=== PATIENT | female | born 1950 | race Caucasian/White ===

== ENCOUNTER 2020-01-25 09:52 | Outpatient (CLI) | payer MEDICARE, SELFPAY ==
[2020-01-25 10:13] LABS: Basophils Percent Auto 0.4 % (0.2-1.2); Eosinophils Absolute Auto 0.1 K/mm3 (0-0.3); Eosinophils Percent Auto 0.9 % (0-4.4); Hemoglobin 12.7 g/dL (12.0-15.0); Immature Granulocyte Absolute 0.03 K/mm3 (0.00-0.031); Immature Granulocyte Percent A 0.4 % (0-0.5); Lymphocytes Absolute Auto 1.38 K/mm3 (0.9-3.2); Lymphocytes Percent Auto 18.1 % (18.3-44.2); Mean Corpuscular HGB Conc 32.6 g/dl (32-36); Mean Corpuscular Hemoglobin 28.3 pg (26-34); Mean Corpuscular Volume 87.1 fl (80-100); Mean Platelet Volume 10.5 fl (7.4-10.4); Monocytes Absolute Auto 0.6 K/mm3 (0.1-0.6); Monocytes Percent Auto 7.5 % (2.6-8.5); Neutrophils Absolute Auto 5.6 K/mm3 (1.3-6.7); Neutrophils Percent Auto 72.7 % (45.5-73.1); Platelet Count Result 183 k/mm3 (150-375); Red Blood Count 4.48 M/mm3 (4.2-5.4); Red Cell Distribution Width 14.5 % (11.5-14.5); White Blood Count 7.6 K/mm3 (4.5-10.0)
[2020-01-25 11:53] LABS: Alanine Aminotransferase 18 U/L (4-35); Albumin Level 4.5 g/dL (3.5-5.1); Alkaline Phosphatase 110 U/L (38-126); Aspartate Amino Transferase 25 U/L (14-36); Bilirubin,Total 0.7 mg/dL (0.2-1.3); Blood Urea Nitrogen 15 mg/dL (7-17); Calcium 9.8 mg/dL (8.4-10.2); Carbon Dioxide 28 mmol/L (22-30); Chloride 101 mmol/L (98-107); Estimated Glomerular Filt Rate > 60; Glucose 114 mg/dL (65-105); Potassium 3.3 mmol/L (3.4-5.0); Sodium 140 mmol/L (137-145)
[2020-01-27 21:19] LABS: CA 27.29 18 U/mL (<38)
== END 2020-01-25 09:53 | disposition home or self-care (01) ==
PROVIDERS: PCP Family Medicine; Visit Provider Internal Medicine Hematology & Oncology
DX: C50.512 Malignant neoplasm of lower-outer quadrant of left female breast (principal); Z17.0 Estrogen receptor positive status [ER+]
CPT/HCPCS: 36415; 80053; 85025; 86300

== ENCOUNTER 2020-02-03 01:30 | Outpatient (CLI) | payer MEDICARE, SELFPAY ==
--- NOTE | ~2020-02-03 | DEXA_ITS ---
Bone Density Report Name: Tabitha Alcaraz Age: 69 Sex: Female Ethnicity: White Date of : 1950 Indication: postmenopausal; height loss; cancer; Referring Provider: James Gibbs Study: Bone densitometry was performed. Exam Date: February 03, 2020 Accession number: [id number] Bone Density: Region BMD T-score Z-score Classification AP Spine (L2, L3, L4) 0.954 -1.1 1.0 Osteopenia Femoral Neck (Left) 0.713 -1.2 0.6 Osteopenia Total Hip (Left) 0.824 -1.0 0.5 Normal Total Hip Bilateral Avg 0.837 -0.9 0.6 Normal Femoral Neck (Right) 0.704 -1.3 0.5 Osteopenia Total Hip (Right) 0.849 -0.8 0.7 Normal World Health Organization criteria for BMD impression classify patients as: Normal (T-score at or above -1.0), Osteopenia (T-score between -1.0 and -2.5), or Osteoporosis (T-score at or below -2.5). 10-year Fracture Risk(1): Major Osteoporotic Fracture 8.3% Hip Fracture 1.0% Reported Risk Factors: [place] (), Neck BMD=0.704, BMI=41.1 (1) FRAX(R) Version 3.08. Fracture probability calculated for an untreated patient. Fracture probability may be lower if the patient has received treatment. Previous Exams: Region Exam Age BMD T-score BMD Change BMD Change Date g/cm2 vs Baseline vs Previous AP Spine(L2, L3, L4) 02/03/2020 69 0.954 -1.1 -0.096(-9.1%)* -0.096(-9.1%)* 11/06/2017 66 1.050 -0.3 Total Hip(Left) 02/03/2020 69 0.824 -1.0 -0.050(-5.7%)* -0.050(-5.7%)* 11/06/2017 66 0.874 -0.6 Total Hip(Right) 02/03/2020 69 0.849 -0.8 -0.006(-0.8%) -0.006(-0.8%) 11/06/2017 66 0.855 -0.7 *Denotes significance at 95% confidence level, LSC for AP Spine = 0.022 g/cm2, LSC for Total Hip = 0.027 g/cm2 Clinical Information Provided by Patient: Has used the following medications: Calcium Has the following medical conditions: Cancer, breast ca Patient maximum height was 65 Menopause Age: 54 Drinks caffeinated beverages Onset of menses at age 9 Number of children 0 Impression: The patient has low bone mass, based on the Right Femoral Neck T-score. The patient has an estimated ten-year risk of hip fracture of 1% and an estimated ten-year risk of major fracture of 8.3%, based on the WHO FRAX algorithm. The BMD for the AP Spine(L2, L3, L4) decreased, changing by -9.1% since the last DXA exam. The BMD for the Total Hip(Left) decreased, changing by -5.7% since the last DXA exam. Discussion: BONE DENSITY IS LOW AT ONE OR MORE SKELETAL SIT
== END 2020-02-03 01:31 | disposition home or self-care (01) ==
PROVIDERS: PCP Family Medicine; Visit Provider Internal Medicine Hematology & Oncology
DX: Z78.0 Asymptomatic menopausal state (principal); M85.852 Other specified disorders of bone density and structure, left thigh; M85.851 Other specified disorders of bone density and structure, right thigh; M85.88 Other specified disorders of bone density and structure, other site
CPT/HCPCS: 77080

== ENCOUNTER 2020-02-27 00:24 | Outpatient (CLI) | payer MEDICARE, SELFPAY ==
[2020-02-27 18:11] LABS: SARS-CoV-2 RNA PCR Negative
== END 2020-02-27 00:25 | disposition home or self-care (01) ==
LOC: ANHCOVIDDT 00:25
PROVIDERS: PCP Family Medicine; Visit Provider Surgery Plastic and Reconstructive Surgery
DX: Z01.812 Encounter for preprocedural laboratory examination (principal); Z20.828 Contact with and (suspected) exposure to other viral communicable diseases
CPT/HCPCS: 87635; C9803; U0003

== ENCOUNTER 2020-02-27 08:13 | Outpatient (CLI) | payer MEDICARE, SELFPAY ==
--- NOTE | 2020-02-27 08:23 | ECG_ITS ---
Measurements Intervals [place] Rate: 84 P: 55 RI: 161 QRS: 1 QRSD: 93 T: 58 QT: 377 QTc: 446 Interpretive Statements SINUS RHYTHM BORDERLINE ST ABNORMALITY- ANTEROLAT/HIGH LAT LEADS BORDERLINE ECG Electronically Signed On 02-27-2020 9:01:53 CDT by Devin Solo D.O.
== END 2020-02-27 08:14 | disposition home or self-care (01) ==
PROVIDERS: PCP Family Medicine; Visit Provider Anesthesiology
DX: I10 Essential (primary) hypertension (principal); R94.31 Abnormal electrocardiogram [ECG] [EKG]
CPT/HCPCS: 93005; C9803; U0003

== ENCOUNTER 2020-03-01 01:47 | Day surgery (SDC) | payer OTHER, SELFPAY ==
[2020-02-22 11:41] VITALS: BMI 39.9
--- NOTE | 2020-02-29 10:06 | P.PNAN_ITS ---
Anes - Eval Pre Procedure Procedure: Operation Date: 03/01/20 07:30 Proposed Procedures p Panniculectomy - Andry Phoenix MD Date/Time: 02/29/20 10:06 Pre Op Diagnosis: Panniculitis Patient Data Age: 69 Gender: F Height: 1.6 m Weight: 102.27 kg Allergies Allergy/AdvReac Type Severity Reaction Status Date / Time pseudoephedrine Allergy Unknown Difficulty Verified 02/22/20 11:18 Breathing Sulfa (Sulfonamide Allergy Unknown Difficulty Verified 02/22/20 11:18 Antibiotics) Breathing triprolidine Allergy Unknown Anaphylactic Verified 02/17/20 10:59 Shock wool Allergy Unknown HIVES Verified 02/17/20 10:59 Home Medications Medication Instructions Recorded Confirmed Type amlodipine 10 mg tablet 10 mg PO DAILY 12/29/19 02/22/20 History celecoxib 200 mg capsule 200 mg PO DAILY 12/29/19 02/22/20 History multivitamin 1 cap PO DAILY 12/29/19 02/22/20 History vitamin B complex 1 tablet PO DAILY 12/29/19 02/22/20 History oxycodone-acetaminophen 5 mg-325 1 tablet PO Q6H PRN #15 tablet 02/17/20 02/22/20 Rx mg tablet magnesium 400 mg PO DAILY 02/22/20 02/22/20 History potassium chloride [Klor-Con] 20 meq PO DAILY 02/22/20 02/22/20 History tamoxifen 20 mg PO DAILY 02/22/20 02/22/20 History Patient hx anesthesia problems: none Family hx anesthesia problems: none PMFSH Past Medical History Medical History (Updated 02/29/20 @ 10:07 by Loren Contreras CRNA) Breast cancer (~2015) Carpal tunnel syndrome (~1994) Hypertension Surgical History Surgical History (Updated 02/17/20 @ 15:03 by Andry Phoenix MD) History of appendectomy History of arthroscopy of right knee History of cholecystectomy History of laparoscopic adjustable gastric banding History of left knee replacement december 2018 History of tonsillectomy Social History Social History Smoking status: Former smoker Additional smoking assessment comments: 1PK/DAY - QUIT Alcohol intake: current Substance use: never Gender identity (if verbalized by the patient): Female Spiritual care concerns: No Exam Day of Procedure 02/29/20 10:06
[2020-03-01] VITALS (18 sets, daily range): BP systolic 93–149; BP diastolic 49–90; PULSE 79–99; RESP 12–18; TEMP 36.1–37.7; O2SAT 92–100
[2020-03-01] MEDS: LACTATED RINGERS 1,000 ML 30 ML IV CONT ×2 (06:30→09:43)
--- NOTE | 2020-03-01 06:40 | WPDANESEFPP ---
Anes - Eval Final PreProcedure Day of Procedure 03/01/20 06:40 Patient weight: morbidly obese Heart: regular rate and rhythm Lungs: clear to auscultation Airway: Mallampati scale class II and special considerations poor opening Neurological: alert and oriented Last oral intake: >/= 8 hours ASA classification: III Emergent: no Anesthetic plan: proceed Anesthesia type and monitoring: general ETT and standard monitoring Informed Consent: The patient's anesthetic plan and its attendant risks and benefits were discussed with the patient/family/POA. Questions were solicited and answers provided to the satisfaction of the patient/family/POA.
--- NOTE | 2020-03-01 06:47 | WPDHPUPDATE1 ---
History and Physical Update Update Date/Time: 03/01/20 06:47 History and Physical has been reviewed, including an updated exam of the patient. There are NO changes in the patient's condition. Risks, benefits, and alternatives have been discussed and questions answered. Patient agrees to proceed with procedure.
[2020-03-01 06:49] LABS: Urine Cotinine NEGATIVE
[2020-03-01] MEDS: ceFAZolin 2 GM/D5W 50 ML 2 GM/50 ML BAG IVPB (07:23)
--- NOTE | 2020-03-01 09:05 | SUR.OPER ---
EBL:50cc
--- NOTE | 2020-03-01 09:05 | SUR.OPER ---
ABDOMINAL TISSUE WT: [id number]
--- NOTE | 2020-03-01 09:26 | PM.PROC ---
Procedure Note - Detailed Date of procedure: 03/01/20 Pre-op diagnosis: Panniculitis Post-op diagnosis: same Procedure performed: Panniculectomy Description of procedure: She was marked in the preoperative holding area with her verification. I made sure she was well aware what we are and are not accomplishing. I want her to be very realistic about expectations. She understands given her history of infections and irritation under this she has a high risk of open wounds and the possibility of needing long-term dressing care. All questions answered to her satisfaction today and consent obtained. She was taken to the operating room placed supine on the operating room table. Anesthesia provided by anesthesiology and prepped and draped in a standard sterile fashion. Surgical time-out was taken. A thorough abdominal examination was completed. No hernias palpable. Stab incisions were made with 11 blade and I used a tumescent solution. A 10 blade was used to make the lower incision and I dissected down to the fascia. I did no elevation of the tissue on the superior incision I used a 10 blade to make this incision. I verified these would reach tension free. I continued this down to the fascia in a V resection fashion. Again, no undermining of the tissue. I copiously irrigated with saline solution and verified strict hemostasis. I then closed over 2 separate 19 Elias drains. This was with 2-0 PDS followed by 3-0 strata fix and genaro. Dressings were placed. She was woken taken to the PACU without difficulty. All instrument sponge counts were correct at the end of the case. Anesthesia: GETA Surgeon: Andry Phoenix MD Estimated blood loss (mL): 50 Drains: Yes (Bilateral Elias) Packing: No Pathology: none sent Complications: No immediate complications Condition: stable Disposition: PACU Findings: Tissue removed 6525.6 grams.
[2020-03-01] MEDS: ONDANSETRON INJ 4 MG/2 ML VIAL IV PUSH (09:55)
[2020-03-01] MEDS: MORPHINE SULFATE 2 MG/ML INJ IV PUSH (11:30)
[2020-03-01] MEDS: oxyCODONE/ACETAMINOPHEN 5-325 MG TABLET PO ×2 (15:26→21:37)
[2020-03-02 02:10] VITALS: BP 147/82; PULSE 61; RESP 18; TEMP 36.9; O2SAT 98
[2020-03-02 04:49] VITALS: BP 113/62; PULSE 87; RESP 18; TEMP 36.7; O2SAT 97
--- NOTE | 2020-03-02 07:23 | WPDPN ---
Progress Note: A&P Assessment and Plan (1) Panniculitis: Code(s): M79.3 - Panniculitis, unspecified Status: Acute Assessment and Plan: She is doing very well after panniculectomy. Will discharge home. Follow up in 2 weeks however keep us updated with drain output. Today we spent extensive time discussing post discharge care. She understands she can call at any time with any questions or concerns. (2) History of total knee arthroplasty: Qualifiers: Laterality: left Qualified Code(s): Z96.652 - Presence of left artificial knee joint Code(s): Z96.659 - Presence of unspecified artificial knee joint Status: Acute (3) History of cholecystectomy: Code(s): Z90.49 - Acquired absence of other specified parts of digestive tract Status: Acute (4) BMI 38.0-38.9,adult: Code(s): Z68.38 - Body mass index (BMI) 38.0-38.9, adult Status: Acute Review of Systems Review of Systems: All systems reviewed & are unremarkable except as noted in HPI and below Exam Narrative: Exam Narrative: Abdomen is healing well. No signs of infection. No hematoma. No seroma. Drains are becoming serosanguineous. Const: General: comfortable, no acute distress, alert and awake; No acute distress Orientation/consciousness: oriented to person HENMT: Head: normal to inspection Ears: external ears normal General nose exam: Normal external nose present Face and sinus: normal facial exam Eyes: General: appearance normal, both eyes and all related structures Periorbital: periorbital findings normal Eyelids: eyelids normal Conjunctivae: conjunctivae normal Neck: Neck: normal visual inspection Chest: Chest palpation & inspection: normal inspection of the chest Resp: Effort & Inspection: normal respiratory effort and able to speak in complete sentences GI: Inspection: normal to inspection Neuro: General: oriented to person Psych: Appearance: grossly normal Mental Status: mental status grossly normal Objective Data Vital Signs Vital Signs: Vital Signs - 24 hr 03/01/20 09:43 03/01/20 09:58 03/01/20 10:00 Temperature 36.1 C L Pulse Rate 81 85 88 Respiratory Rate 12 18 12 Blood Pressure 109/50 L 124/49 L 141/71 H Pulse Oximetry 99 95 92 03/01/20 10:15 03/01/20 10:30 08/11/20 10:45 Temperature Pulse Rate 85 85 84 Respiratory Rate 12 16 12 Blood Pressure 141/74 H 143/62 H 149/76 H Pulse Oximetry 92 94 97 03/01/20 10:50 03/01/20 11:00 03/01/20 11:15 Temperature 36.9 C Pulse Rate 83 79 85 Respiratory Rate 18 18 18 Blood Pressure 131/62 115/52 L 109/61 Pulse Oximetry 96 96 100 03/01/20 11:30 03/01/20 12:00 03/01/20 12:30 Temperature 36.8 C Pulse Rate 88 83 92 Respiratory Rate 18 18 18 Blood Pressure 102/51 L 93/52 L 103/51 L Pulse Oximetry 95 98 96 03/01/20 13:00 03/01/20 14:00 03/01/20 16:41 Temperature Pulse Rate 88 84 84 Respiratory Rate 18 18 18 Blood Pressure 97/51 L 103/60 Pulse Oximetry 98 98 98 03/01/20 16:45 03/01/20 19:32 03/02/20 02:10 Temperature 37.2 C 37.7 C H 36.9 C Pulse Rate 90 99 61 Respiratory Rate 16 18 18 Blood Pressure 103/53 L 138/90 147/82 H Pulse Oximetry 96 98 03/02/20 04:49 Temperature 36.7 C Pulse Rate 87 Respiratory Rate 18 Blood Pressure 113/62 Pulse Oximetry 97 Intake/Output Intake/Output: Intake & Output 02/28/20 02/29/20 03/01/20 03/02/20 23:59 23:59 23:59 23:59 Intake Total 500 Output Total 750 615 Balance -250 -615 Meds/Results Medications: Active Medications Generic Name Dose Route Start Last Admin Trade Name Freq PRN Reason Stop Dose Admin Amlodipine Besylate 10 mg 03/02/20 09:00 Norvasc PO DAILY [facility] Celecoxib 200 mg 03/02/20 09:00 Celebrex PO DAILY [facility] Docusate Sodium 100 mg 03/01/20 21:00 03/02/20 02:12 Colace Capsule PO Not Given Q12HR [facility] Enoxaparin Sodium 40 mg 03/02/20 09:00 Lovenox SUB-Q DAILY [facility]
[2020-03-02 07:25] VITALS: BP 134/67; PULSE 94; RESP 18; TEMP 37.3; O2SAT 95
--- NOTE | 2020-03-02 07:26 | PM.DS ---
DS: Admitting Diagnosis Admitting Diagnosis Admitting Diagnosis: Panniculitis DS: Discharge Diagnosis Discharge Diagnosis (1) Panniculitis: Code(s): M79.3 - Panniculitis, unspecified Status: Acute Assessment and Plan: She is doing very well after panniculectomy. Will discharge home. (2) History of cholecystectomy: Code(s): Z90.49 - Acquired absence of other specified parts of digestive tract Status: Acute (3) BMI 38.0-38.9,adult: Code(s): Z68.38 - Body mass index (BMI) 38.0-38.9, adult Status: Acute DS: Summary Time Spent with Patient Time attestation: Total time spent providing and/or coordinating discharge services: 15 minutes Exam Narrative: Exam Narrative: Abdomen is healing well. No signs of infection. No hematoma. No seroma. Drains are becoming serosanguineous. Const: General: comfortable, no acute distress, alert and awake; No acute distress Orientation/consciousness: oriented to person HENMT: Head: normal to inspection Ears: external ears normal General nose exam: Normal external nose present Face and sinus: normal facial exam Eyes: General: appearance normal, both eyes and all related structures Periorbital: periorbital findings normal Eyelids: eyelids normal Conjunctivae: conjunctivae normal Neck: Neck: normal visual inspection Chest: Chest palpation & inspection: normal inspection of the chest Resp: Effort & Inspection: normal respiratory effort and able to speak in complete sentences GI: Inspection: normal to inspection Neuro: General: oriented to person Psych: Appearance: grossly normal Mental Status: mental status grossly normal Discharge Plan Discharge Patient Disposition: Home, Self-Care Discharge Instructions: POST OPERATIVE DISCHARGE INSTRUCTIONS FOR Panniculectomy ANDRY PHOENIX M.D. [facility] [address] [place] [address] [address] for 24 hours after anesthesia and while you are taking pain medication. Take all prescribed medication as directed Diet as tolerated. No lifting or activity that raises blood pressure for 48 hours. Regular walking / ambulation. No showering until directed to. Once you shower do not take pain medication before showering as the combination of medication and heat may cause you to feel dizzy or pass out. No pools or tubs for 2 weeks. Call with any questions or concerns. Dressing Care: Dry dressing daily as needed. May wash around drains, keep drain sites clean and dry. Nursing will teach drain care. Please keep us updated (track per drain per day). If you have any questions or concerns, please call the office . If it is after hours you will be directed to the pullman conductor exchange. Shortness of breath, chest pain, or other medical emergency dial 911 / proceed to the Emergency Room. Stand Alone Forms: General Discharge Instructions Follow-up/Referrals: Andry Phoenix MD [Physician] - 2 Weeks Discharge Medications: Continued oxycodone-acetaminophen [Percocet] 5-325 mg tablet 1 tablet PO Q6H PRN (Reason: pain) Qty: 15 RF: 0 celecoxib 200 mg capsule 200 mg PO DAILY RF: 0 amlodipine 10 mg tablet 10 mg PO DAILY RF: 0 multivitamin Capsule 1 cap PO DAILY RF: 0 vitamin B complex [B Complex-Vitamin B12] Tablet 1 tablet PO DAILY RF: 0 potassium chloride [Klor-Con] 20 mEq Packet 20 meq PO DAILY RF: 0 tamoxifen 20 mg Tablet 20 mg PO DAILY RF: 0 magnesium 200 mg Tablet 400 mg PO DAILY RF: 0 Primary Care Provider: Yesenia,Violet Durbin Attending physician on admission: Andry Phoenix
[2020-03-02] MEDS: oxyCODONE/ACETAMINOPHEN 5-325 MG TABLET PO (07:30)
--- NOTE | 2020-03-02 07:48 | WPDANESPN ---
Anes - Prog Note Post-Op Date/Time: 03/02/20 07:48 Cardiovascular status: normal Respiratory status: normal Airway patency: baseline Mental status: baseline Post-Op hydration status: normal Vital Signs: Last Vital Signs Temp 36.7 C 03/02/20 04:49 Pulse 87 03/02/20 04:49 Resp 18 03/02/20 04:49 BP 113/62 03/02/20 04:49 Pulse Ox 97 03/02/20 04:49 I/O: Intake & Output 03/01/20 03/01/20 03/02/20 15:59 23:59 07:59 Intake Total 500 Output Total 710 40 320 Balance -210 -06 -781 Post-procedural complaints: none Patient Feedback: Patient satisfied with anesthetic care.
[2020-03-02] MEDS: CELECOXIB 200 MG CAPSULE PO (09:15)
[2020-03-02] MEDS: TAMOXIFEN CITRATE (*CHEMO) 10 MG TABLET 20 MG PO (09:15)
[2020-03-02] MEDS: MULTIVITAMINS THERAPEUTIC TAB (*BKC) 1 TABLET PO (09:16)
[2020-03-02] MEDS: amLODIPine BESYLATE 5 MG TABLET 10 MG PO (09:17)
[2020-03-02] MEDS: DOCUSATE SODIUM 100 MG CAPSULE PO (09:17)
[2020-03-02] MEDS: VITAMIN B COMPLEX CAPSULE 1 CAP PO (09:18)
[2020-03-02] MEDS: ENOXAPARIN 40 MG/0.4 ML SYRINGE SUB-Q (09:18)
== END 2020-03-02 10:42 | disposition home or self-care (01) ==
LOC: ANHSURGERY 06:21 → ANHOB2 10:55
PROVIDERS: PCP Family Medicine; Visit Provider Surgery Plastic and Reconstructive Surgery
PROC: 0JB80ZZ Excision of Abdomen Subcutaneous Tissue and Fascia, Open Approach (ICD-10-PCS; CPT 15830; principal; 2020-03-01 07:30)
DX: M79.3 Panniculitis, unspecified (principal); I10 Essential (primary) hypertension; Z85.3 Personal history of malignant neoplasm of breast; Z79.810 Long term (current) use of selective estrogen receptor modulators (SERMs); Z79.899 Other long term (current) drug therapy; Z87.891 Personal history of nicotine dependence; E66.01 Morbid (severe) obesity due to excess calories; Z68.41 Body mass index [BMI] 40.0-44.9, adult; Z96.659 Presence of unspecified artificial knee joint; Z90.49 Acquired absence of other specified parts of digestive tract
CPT/HCPCS: 15830; 36415; 80307; 99199; A9270; J0171; J0330; J0690; J1100; J1170; J1650; J2270; J2405; J2704; J3010; J7120

== ENCOUNTER 2020-07-25 09:45 | Outpatient (CLI) | payer MEDICARE, SELFPAY ==
[2020-07-25 10:16] LABS: Basophils Absolute Auto 0.1 K/mm3 (0.0-0.1); Basophils Percent Auto 0.6 % (0.2-1.2); Eosinophils Absolute Auto 0.1 K/mm3 (0-0.3); Eosinophils Percent Auto 1.7 % (0-4.4); Hematocrit 40.3 % (37.0-47.0); Hemoglobin 12.9 g/dL (12.0-15.0); Immature Granulocyte Absolute 0.02 K/mm3 (0.00-0.031); Immature Granulocyte Percent A 0.3 % (0-0.5); Lymphocytes Absolute Auto 1.67 K/mm3 (0.9-3.2); Lymphocytes Percent Auto 21.4 % (18.3-44.2); Mean Corpuscular Hemoglobin 27.5 pg (26-34); Mean Corpuscular Volume 85.9 fl (80-100); Mean Platelet Volume 10.4 fl (7.4-10.4); Monocytes Absolute Auto 0.5 K/mm3 (0.1-0.6); Monocytes Percent Auto 6.9 % (2.6-8.5); Neutrophils Absolute Auto 5.4 K/mm3 (1.3-6.7); Neutrophils Percent Auto 69.1 % (45.5-73.1); Platelet Count Result 178 k/mm3 (150-375); Red Blood Count 4.69 M/mm3 (4.2-5.4); Red Cell Distribution Width 15.7 % (11.5-14.5); White Blood Count 7.8 K/mm3 (4.5-10.0)
[2020-07-25 14:26] LABS: Alanine Aminotransferase 24 U/L (4-35); Alkaline Phosphatase 93 U/L (38-126); Anion Gap 7 mmol/L (8-16); Aspartate Amino Transferase 28 U/L (14-36); Bilirubin,Total 0.6 mg/dL (0.2-1.3); Blood Urea Nitrogen 15 mg/dL (7-17); Calcium 9.4 mg/dL (8.4-10.2); Carbon Dioxide 27 mmol/L (22-30); Chloride 103 mmol/L (98-107); Estimated Glomerular Filt Rate > 60; Glucose 110 mg/dL (65-105); Potassium 3.9 mmol/L (3.4-5.0); Sodium 137 mmol/L (137-145)
[2020-07-30 06:35] LABS: CA 27.29 17 U/mL (<38)
== END 2020-07-25 09:46 | disposition home or self-care (01) ==
LOC: ANHLAB 09:48
PROVIDERS: PCP Family Medicine; Visit Provider Internal Medicine Hematology & Oncology
DX: C50.412 Malignant neoplasm of upper-outer quadrant of left female breast (principal); Z17.0 Estrogen receptor positive status [ER+]
CPT/HCPCS: 36415; 80053; 85025; 86300

== ENCOUNTER 2021-07-25 08:31 | Outpatient (CLI) | payer MEDICARE, SELFPAY ==
[2021-07-25 09:15] LABS: Basophils Absolute Auto 0.1 K/mm3 (0.0-0.1); Basophils Percent Auto 0.7 % (0.2-1.2); Eosinophils Absolute Auto 0.1 K/mm3 (0-0.3); Hematocrit 42.2 % (37.0-47.0); Hemoglobin 13.1 g/dL (12.0-15.0); Immature Granulocyte Absolute 0.04 K/mm3 (0.00-0.031); Immature Granulocyte Percent A 0.6 % (0-0.5); Lymphocytes Absolute Auto 1.52 K/mm3 (0.9-3.2); Mean Corpuscular Hemoglobin 28.1 pg (26-34); Mean Corpuscular Volume 90.4 fl (80-100); Mean Platelet Volume 10.4 fl (7.4-10.4); Monocytes Absolute Auto 0.5 K/mm3 (0.1-0.6); Neutrophils Absolute Auto 5.1 K/mm3 (1.3-6.7); Neutrophils Percent Auto 69.7 % (45.5-73.1); Platelet Count Result 183 k/mm3 (150-375); Red Blood Count 4.67 M/mm3 (4.2-5.4); Red Cell Distribution Width 14.7 % (11.5-14.5); White Blood Count 7.2 K/mm3 (4.5-10.0)
[2021-07-25 12:11] LABS: Alanine Aminotransferase 25 U/L (4-35); Albumin Level 4.3 g/dL (3.5-5.1); Alkaline Phosphatase 96 U/L (38-126); Anion Gap 10 mmol/L (8-16); Aspartate Amino Transferase 44 U/L (14-36); Bilirubin,Total 0.5 mg/dL (0.2-1.3); Blood Urea Nitrogen 13 mg/dL (7-17); Calcium 9.1 mg/dL (8.4-10.2); Carbon Dioxide 25 mmol/L (22-30); Chloride 104 mmol/L (98-107); Estimated Glomerular Filt Rate > 60; Glucose 132 mg/dL (65-110); Potassium 3.7 mmol/L (3.4-5.0); Sodium 139 mmol/L (137-145)
[2021-07-27 19:46] LABS: CA 15-3 16 U/mL (<32)
== END 2021-07-25 08:32 | disposition home or self-care (01) ==
PROVIDERS: PCP Family Medicine; Visit Provider Internal Medicine Hematology & Oncology
DX: C50.412 Malignant neoplasm of upper-outer quadrant of left female breast (principal); Z17.0 Estrogen receptor positive status [ER+]
CPT/HCPCS: 36415; 80053; 85025; 86300

== ENCOUNTER 2021-12-11 11:03 | Outpatient (CLI) | payer MEDICARE, SELFPAY ==
--- NOTE | ~2021-12-11 | MM_ITS ---
EXAMINATION: MM diagnostic [facility] BI w delaney HISTORY: History of left breast cancer; status post partial mastectomy, radiotherapy and chemotherapy TECHNIQUE: ML, MLO and CC 3-D tomosynthesis images of both breasts were performed and synthetic 2-D i mages were generated. CAD analysis was submitted and interpreted. COMPARISON: 09/26/2015 diagnostic left mammogram and limited left breast ultrasound examination 09/08/2015 bilateral screening mammogram 09/06/2014 diagnostic left mammogram and limited left breast ultrasound 08/19/2014 bilateral screening mammogram BREAST PARENCHYMAL COMPOSITION: There are scattered areas of fibroglandular density. FINDINGS: There is volume loss of the left breast. There are surgical clips in the upper outer quadra nt and axillary region consistent with prior left partial mastectomy and left axillary node dissectio n for breast cancer. There bilateral benign calcifications, more numerous on the left. Mild left-sided skin thickening, likely due to prior radiotherapy. No suspicious mass, architectural distortion, malignant calcification, skin thickening or retraction is noted otherwise. IMPRESSION: 1. Status post left partial mastectomy and axillary node dissection for breast cancer; no mammographi c evidence of malignancy 2. Routine annual mammographic screening is recommended BI-RADS Category 2: Benign finding(s). Reviewed, dictated and finalized at location A. IMPRESSION: 1. Status post left partial mastectomy and axillary node dissection for breast cancer; no mammographic evidence of malignancy 2. Routine annual mammographic screening is recommended BI-RADS Category 2: Benign finding(s).
== END 2021-12-11 11:04 | disposition home or self-care (01) ==
PROVIDERS: PCP Family Medicine; Visit Provider Internal Medicine Hematology & Oncology
DX: C50.412 Malignant neoplasm of upper-outer quadrant of left female breast (principal); Z17.0 Estrogen receptor positive status [ER+]
CPT/HCPCS: 77062; 77066; G0279

== ENCOUNTER 2022-07-24 09:07 | Outpatient (CLI) | payer MEDICARE, SELFPAY ==
[2022-07-24 09:31] LABS: Basophils Absolute Auto 0.1 K/mm3 (0.0-0.1); Basophils Percent Auto 0.7 % (0.2-1.2); Eosinophils Absolute Auto 0.1 K/mm3 (0-0.3); Eosinophils Percent Auto 1.5 % (0-4.4); Hematocrit 41.2 % (37.0-47.0); Hemoglobin 13.2 g/dL (12.0-15.0); Immature Granulocyte Absolute 0.05 K/mm3 (0.00-0.031); Immature Granulocyte Percent A 0.7 % (0-0.5); Lymphocytes Absolute Auto 1.34 K/mm3 (0.9-3.2); Lymphocytes Percent Auto 19.5 % (18.3-44.2); Mean Corpuscular Hemoglobin 27.8 pg (26-34); Mean Corpuscular Volume 86.9 fl (80-100); Monocytes Absolute Auto 0.6 K/mm3 (0.1-0.6); Monocytes Percent Auto 8.6 % (2.6-8.5); Neutrophils Absolute Auto 4.8 K/mm3 (1.3-6.7); Platelet Count Result 218 k/mm3 (150-375); Red Blood Count 4.74 M/mm3 (4.2-5.4); White Blood Count 6.9 K/mm3 (4.5-10.0)
[2022-07-24 21:31] LABS: Alanine Aminotransferase 23 U/L (6-35); Albumin Level 4.7 g/dL (3.5-5.1); Alkaline Phosphatase 111 U/L (38-126); Anion Gap 11 mmol/L (8-16); Aspartate Amino Transferase 27 U/L (14-36); Bilirubin,Total 0.6 mg/dL (0.2-1.3); Blood Urea Nitrogen 13 mg/dL (7-17); Calcium 8.9 mg/dL (8.4-10.2); Carbon Dioxide 24 mmol/L (22-30); Chloride 102 mmol/L (98-107); Estimated Glomerular Filt Rate > 60; Glucose 129 mg/dL (65-110); Potassium 3.9 mmol/L (3.4-5.0); Sodium 137 mmol/L (137-145)
[2022-07-27 14:33] LABS: CA 15-3 18 U/mL (<32)
== END 2022-07-24 09:08 | disposition home or self-care (01) ==
PROVIDERS: PCP Family Medicine; Visit Provider Internal Medicine Hematology & Oncology
DX: C50.412 Malignant neoplasm of upper-outer quadrant of left female breast (principal); Z17.0 Estrogen receptor positive status [ER+]
CPT/HCPCS: 36415; 80053; 85025; 86300

== ENCOUNTER → 2022-12-04 08:19 | Outpatient (CLI) | payer MEDICARE, SELFPAY ==
--- NOTE | ~2022-12-04 | MR_ITS ---
MRI of the lumbar spine Clinical History: Back pain Technique: Axial T2-weighted images, and sagittal T1-weighted, T2-weighted, and T2 fat-sat images wer e acquired. Findings: There is no fracture of the lumbar spine. There is 3 mm anterolisthesis of L4 over L5. No s uspicious bone marrow signal abnormality seen. At L1-L2, there is minimal disc bulge and mild facet arthropathy. No spinal canal stenosis or definit e neural foraminal narrowing. At L2-L3, there is minimal disc bulge and minimal facet arthropathy. No spinal canal stenosis. There is mild bilateral neural foraminal narrowing. At L3-L4, there is disc bulge and advanced facet arthropathy. No spinal canal stenosis. There is mode rate right neural foraminal narrowing. Left neural foramen preserved. At L4-L5, there is disc bulge and facet arthropathy, resulting in severe spinal canal stenosis/thecal sac compression. There is severe bilateral neural foraminal narrowing. At L5-S1, there is diffuse disc bulge and advanced facet arthropathy. There is mild central canal taylor nosis. There is severe left neural foraminal narrowing, and moderate to severe right neural foraminal narrowing. Paravertebral soft tissues are unremarkable. Impression: Advanced degenerative spondylosis at L4-L5 and L5-S1, as detailed above. [id number] degenerative spondylosis at the remainder of the lumbar spine, as detailed above. 3 mm anterolisthesis of L4 over L5. Reviewed, dictated and finalized at [facility]. Impression: Advanced degenerative spondylosis at L4-L5 and L5-S1, as detailed above. [id number] degenerative spondylosis at the remainder of the lumbar spine, as detailed above. 3 mm anterolisthesis of L4 over L5.
== END ==
PROVIDERS: PCP Nurse Practitioner Family; Visit Provider Nurse Practitioner Family
DX: M54.42 Lumbago with sciatica, left side (principal); M47.896 Other spondylosis, lumbar region
CPT/HCPCS: 72148

== ENCOUNTER 2022-12-13 08:49 | Outpatient (CLI) | payer MEDICARE, SELFPAY ==
--- NOTE | ~2022-12-13 | MM_ITS ---
EXAMINATION: MM screening [facility] BI w delaney HISTORY: Screening mammogram, history of left breast cancer TECHNIQUE: Craniocaudal and mediolateral oblique 3-D tomosynthesis images were obtained and synthetic 2-D images were generated. CAD analysis was submitted and interpreted. COMPARISON: 12/11/2021, 09/26/2015, 09/08/2015 BREAST PARENCHYMAL COMPOSITION: There are scattered areas of fibroglandular density. FINDINGS: Stable lumpectomy changes are noted in the left breast. No suspicious mass, calcification, or architectural distortion are identified in either breast to suggest malignancy. There has been no suspicious interval change. IMPRESSION: 1. No mammographic evidence of malignancy. 2. Recommend routine screening mammography in one year. BI-RADS Category 2: Benign finding(s). Reviewed, dictated and finalized at location A.
== END 2022-12-13 08:50 | disposition home or self-care (01) ==
PROVIDERS: PCP Family Medicine; Visit Provider Internal Medicine Hematology & Oncology
DX: Z12.31 Encounter for screening mammogram for malignant neoplasm of breast (principal)
CPT/HCPCS: 77063; 77067

== ENCOUNTER 2023-07-23 08:20 | Outpatient (CLI) | payer MEDICARE, SELFPAY ==
[2023-07-23 08:39] LABS: Basophils Absolute Auto 0.1 K/mm3 (0.0-0.1); Basophils Percent Auto 0.9 % (0.2-1.2); Eosinophils Absolute Auto 0.1 K/mm3 (0-0.3); Eosinophils Percent Auto 1.7 % (0-4.4); Hematocrit 41.4 % (37.0-47.0); Hemoglobin 13.4 g/dL (12.0-15.0); Immature Granulocyte Absolute 0.08 K/mm3 (0.00-0.031); Immature Granulocyte Percent A 1.2 % (0-0.5); Lymphocytes Percent Auto 21.9 % (18.3-44.2); Mean Corpuscular HGB Conc 32.4 g/dl (32-36); Mean Corpuscular Hemoglobin 28.5 pg (26-34); Mean Corpuscular Volume 88.1 fl (80-100); Mean Platelet Volume 10.4 fl (7.4-10.4); Monocytes Absolute Auto 0.6 K/mm3 (0.1-0.6); Monocytes Percent Auto 8.3 % (2.6-8.5); Neutrophils Absolute Auto 4.5 K/mm3 (1.3-6.7); Platelet Count Result 193 k/mm3 (150-375); Red Cell Distribution Width 14.3 % (11.5-14.5); White Blood Count 6.9 K/mm3 (4.5-10.0)
[2023-07-23 13:41] LABS: Alanine Aminotransferase 22 U/L (6-35); Albumin Level 4.3 g/dL (3.5-5.1); Alkaline Phosphatase 116 U/L (38-126); Anion Gap 12 mmol/L (8-16); Aspartate Amino Transferase 24 U/L (14-36); Bilirubin,Total 0.7 mg/dL (0.2-1.3); Blood Urea Nitrogen 13 mg/dL (7-17); Carbon Dioxide 27 mmol/L (22-30); Chloride 101 mmol/L (98-107); Estimated Glomerular Filt Rate > 60; Glucose 133 mg/dL (65-110); Potassium 3.6 mmol/L (3.4-5.0); Sodium 140 mmol/L (137-145)
[2023-07-25 20:31] LABS: CA 15-3 18 U/mL (<32)
== END 2023-07-23 08:21 | disposition home or self-care (01) ==
PROVIDERS: PCP Family Medicine; Visit Provider Internal Medicine Hematology & Oncology
DX: C50.412 Malignant neoplasm of upper-outer quadrant of left female breast (principal); Z17.0 Estrogen receptor positive status [ER+]
CPT/HCPCS: 36415; 80053; 85025; 86300

== ENCOUNTER 2023-12-19 07:30 | Outpatient (CLI) | payer MEDICARE, SELFPAY ==
--- NOTE | ~2023-12-19 | MM_ITS ---
EXAMINATION: MM screening [facility] BI w delaney HISTORY: Screening TECHNIQUE: Craniocaudal and mediolateral oblique 3-D tomosynthesis images were obtained and synthetic 2-D images were generated. CAD analysis was submitted and interpreted. COMPARISON: Comparison to multiple prior studies sequentially, with oldest reviewed study dated 08/19. BREAST PARENCHYMAL COMPOSITION: . Not dense: There are scattered areas of fibroglandular density. FINDINGS: There are surgical changes consistent with previous left lumpectomy in the upper outer quad rant. There is no evidence of suspicious mass, calcification, or architectural distortion to suggest malignancy in either breast. There has been no suspicious interval change. IMPRESSION: 1. No mammographic evidence of malignancy. 2. Recommend routine screening mammography in one year. BI-RADS Category 2: Benign finding(s). Reviewed, dictated and finalized at location B.
== END 2023-12-19 07:31 | disposition home or self-care (01) ==
PROVIDERS: Visit Provider Internal Medicine Hematology & Oncology
DX: Z12.31 Encounter for screening mammogram for malignant neoplasm of breast (principal)
CPT/HCPCS: 77063; 77067

== ENCOUNTER 2024-01-21 11:27 | Outpatient (CLI) | payer MEDICARE, SELFPAY ==
--- NOTE | ~2024-01-21 | XR_ITS ---
XR shoulder LT min 2V Ordering provider: Ed Sanchez MD History: . M25.512 - Pain in left shoulder, NKI . Comparison: None. FINDINGS: BONES: No acute fracture or dislocation. JOINT SPACES: The acromioclavicular joint shows osteoarthritic changes. The glenohumeral joint is nor mal. SOFT TISSUES: Normal. Postoperative changes in the left axilla. IMPRESSION: No acute osseous abnormality left shoulder. Reviewed, dictated and finalized at location A.
--- NOTE | ~2024-01-21 | XR_ITS ---
XR knee LT 3V Ordering provider: Ed Sanchez MD History: . Z96.652 - Presence of left artificial knee joint . Comparison: December 28, 2020 FINDINGS: BONES: No acute fracture or dislocation. JOINT SPACES: Total knee arthroplasty. SOFT TISSUES: Normal. IMPRESSION: No acute osseous abnormality left knee. Total knee arthroplasty. Reviewed, dictated and finalized at location A.
== END 2024-01-21 11:28 | disposition home or self-care (01) ==
PROVIDERS: Visit Provider Orthopaedic Surgery
DX: Z96.652 Presence of left artificial knee joint (principal); M25.512 Pain in left shoulder
CPT/HCPCS: 73030; 73562

== ENCOUNTER 2024-02-21 08:53 | Outpatient (CLI) | payer MEDICARE, SELFPAY ==
--- NOTE | ~2024-02-21 | DEXA_ITS ---
Bone Density Report Name: ANTWON LANCASTER Age: 73 Sex: Female Ethnicity: White Date of : 1950 Indication: postmenopausal; screening for osteoporosis; height loss; history of glucocorticoids; cancer; Referring Provider: FRANKLIN, BAKARI [place] Study: Bone densitometry was performed. Exam Date: February 21, 2024 Accession number: [id number] Bone Density: Region BMD T-score Z-score Classification AP Spine(L1-L4) 0.971 -0.7 1.7 Normal Femoral Neck (Left) 0.734 -1.0 1.0 Normal Total Hip (Left) 0.860 -0.7 1.1 Normal Femoral Neck (Right) 0.760 -0.8 1.2 Normal Total Hip (Right) 0.904 -0.3 1.4 Normal Total Hip Mean 0.882 -0.5 1.3 Normal World Health Organization criteria for BMD impression classify patients as: Normal (T-score at or above -1.0), Osteopenia (T-score between -1.0 and -2.5), or Osteoporosis (T-score at or below -2.5). 10-year Fracture Risk: FRAX not reported because: All T-scores for Spine Total, Hip Total, Femoral Neck at or above -1.0 Clinical Information Provided by Patient: Has taken Glucocorticoids Has used the following medications: Vitamin D, Calcium Has the following medical conditions: Cancer Patient maximum height was 65 Menopause Age: 54 No regular weight bearing exercise Drinks caffeinated beverages Onset of menses at age 9 Number of children 0 Impression: The patient has normal bone mass. The patient has risk factors, including: history of glucocorticoid therapy. Discussion: BONE DENSITY IS ABOVE THE MINIMUM DESIRABLE LEVEL AT ALL SKELETAL SITES TESTED. This patient?s bone mineral density is above the minimum desirable level (T-score -1.0 or better) at all sites measured. The patient should follow a healthful lifestyle (good nutrition with adequate calcium and vitamin D, and appropriate weight-bearing exercise). Follow-Up: Consider repeating this study in 5 years or sooner if there is some new clinical indication. Reported by: ALIE on 02/21/2024 9:35:00 AM. Reviewed, dictated and finalized at location [facility]
== END 2024-02-21 08:54 | disposition home or self-care (01) ==
PROVIDERS: Visit Provider Family Medicine
DX: Z78.0 Asymptomatic menopausal state (principal)
CPT/HCPCS: 77080

== ENCOUNTER 2024-05-01 09:09 | Outpatient (CLI) | payer MEDICARE, SELFPAY ==
--- NOTE | ~2024-05-01 | XR_ITS ---
Clinical Indication: Cough PA and lateral views of the chest: Comparison: 06/27/2016 Findings: Possible 1 cm right upper lobe nodule. Left lung clear.. Cardiomediastinal silhouette is w ithin normal limits. Bones and soft tissues are unremarkable. Impression: Possible 1 cm right upper lobe pulmonary nodule. Chest CT recommended for further evaluation. Reviewed, dictated and finalized at location . Impression: Possible 1 cm right upper lobe pulmonary nodule. Chest CT recommended for [facility] er evaluation.
== END 2024-05-01 09:10 | disposition home or self-care (01) ==
DX: R05.9 Cough, unspecified (principal); R91.8 Other nonspecific abnormal finding of lung field
CPT/HCPCS: 71046

== ENCOUNTER 2024-05-06 09:15 | Outpatient (CLI) | payer MEDICARE, SELFPAY ==
--- NOTE | ~2024-05-06 | CT_ITS ---
CT Scan of the Chest without Contrast: Clinical Indication: Pulmonary nodule Technique: Contiguous sections were acquired throughout the chest without intravenous contrast. Dose reduction technique was used on this scan by utilizing automated exposure control and iterative recon struction technique. The dose-length product (DLP) was 332.86 mGy-cm. Findings: There is no evidence of any significant mediastinal, hilar or axillary lymphadenopathy. The mediastin al soft tissues appear normal. Postoperative changes noted in the left axilla and partially imaged in the left breast. There is no evidence of pleural or pericardial effusion. There is probable right basilar chronic appearing atelectasis and/or scarring medially. Probable mini mal post radiation change or scarring in the left upper lobe. There is subtle small groundglass nodul e/tree but opacities in the right upper lobe, suggestive of atypical/small airways infectious process . Possible minimal involvement superior segment right lower lobe. Images through the upper abdomen reveal LAP-BAND in place. Impression: Small groundglass/tree-in-bud opacities in the right upper lobe, possibly in the superior segment rig ht lower lobe. Findings are most consistent with small airways/atypical infectious process. Probable chronic atelectasis or scarring medial right lung base. Probable mild post radiation change left upper lobe. Reviewed, dictated and finalized at location M. Impression: Small groundglass/tree-in-bud opacities in the right upper lobe, possibly in th e superior segment right lower lobe. Findings are most consistent with small ai rways/atypical infectious process. Probable chronic atelectasis or scarring medial right lung base. Probable mild post radiation change left upper lobe.
== END 2024-05-06 09:16 | disposition home or self-care (01) ==
LOC: MICIMG 09:17
DX: R91.1 Solitary pulmonary nodule (principal); R91.8 Other nonspecific abnormal finding of lung field
CPT/HCPCS: 71250

== ENCOUNTER 2024-05-12 09:09 | Outpatient (CLI) | payer MEDICARE, SELFPAY ==
--- NOTE | ~2024-05-12 | XR_ITS ---
XR knee RT min 4V Ordering provider: Ed Sanchez MD History: . M25.561 - Pain in right knee, injury . Comparison: None. FINDINGS: BONES: No acute fracture or dislocation. JOINT SPACES: Narrowing of the medial compartment of the right knee. Left knee arthroplasty. SOFT TISSUES: Normal. IMPRESSION: No acute osseous abnormality right knee. Moderate to severe osteoarthritic changes of the right knee. Reviewed, dictated and finalized at location A.
== END 2024-05-12 09:10 | disposition home or self-care (01) ==
LOC: ANHIMG 09:14
PROVIDERS: Visit Provider Orthopaedic Surgery
DX: M17.11 Unilateral primary osteoarthritis, right knee (principal)
CPT/HCPCS: 73564

== ENCOUNTER 2024-06-08 15:13 | Outpatient (CLI) | payer MEDICARE, SELFPAY ==
--- NOTE | ~2024-06-08 | CT_ITS ---
EXAMINATION:CT diagnostic chest wo con DATE: 06/08/2024 15:31 INDICATION: Other forms of dyspnea. Chronic cough. TECHNIQUE: Computed tomography (CT) of the chest was performed without intravenous contrast. Automate d exposure control and iterative reconstruction technique were employed. The dose-length product (DLP ) was 662.51 mGy-cm. COMPARISON: Chest CT 05/06/2024 FINDINGS: The lungs demonstrate mild atelectasis. The right-sided pneumonia has resolved. 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 No pleural effusion. The heart size is normal. No perica rdial effusion. There are surgical clips in left breast and left axilla. There is a lap band around t he proximal stomach. There is a small sliding hiatal hernia. There are changes of cholecystectomy. Th ere is moderate thoracic spondylosis. IMPRESSION: 1. 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 Reviewed, dictated and finalized at location A. 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
== END 2024-06-08 15:14 | disposition home or self-care (01) ==
LOC: MICIMG 15:15
PROVIDERS: PCP Internal Medicine Pulmonary Disease; Visit Provider Internal Medicine Pulmonary Disease
DX: R06.09 Other forms of dyspnea (principal); J70.1 Chronic and other pulmonary manifestations due to radiation; D89.9 Disorder involving the immune mechanism, unspecified
CPT/HCPCS: 71250

== ENCOUNTER 2024-07-28 08:06 | Outpatient (CLI) | payer MEDICARE, SELFPAY ==
[2024-07-28 08:26] LABS: Basophils Percent Auto 0.5 % (0.2-1.2); Eosinophils Absolute Auto 0.1 K/mm3 (0-0.3); Eosinophils Percent Auto 1.1 % (0-4.4); Hematocrit 42.3 % (37.0-47.0); Hemoglobin 13.8 g/dL (12.0-15.0); Immature Granulocyte Absolute 0.03 K/mm3 (0.00-0.031); Immature Granulocyte Percent A 0.4 % (0-0.5); Lymphocytes Absolute Auto 1.47 K/mm3 (0.9-3.2); Lymphocytes Percent Auto 17.3 % (18.3-44.2); Mean Corpuscular HGB Conc 32.6 g/dl (32-36); Mean Corpuscular Hemoglobin 28.2 pg (26-34); Mean Corpuscular Volume 86.5 fl (80-100); Mean Platelet Volume 10.1 fl (7.4-10.4); Monocytes Absolute Auto 0.6 K/mm3 (0.1-0.6); Monocytes Percent Auto 6.7 % (2.6-8.5); Neutrophils Absolute Auto 6.3 K/mm3 (1.3-6.7); Platelet Count Result 185 k/mm3 (150-375); Red Blood Count 4.89 M/mm3 (4.2-5.4); Red Cell Distribution Width 14.5 % (11.5-14.5); White Blood Count 8.5 K/mm3 (4.5-10.0)
[2024-07-28 13:19] LABS: Alanine Aminotransferase 20 U/L (6-35); Albumin Level 4.4 g/dL (3.5-5.1); Alkaline Phosphatase 96 U/L (38-126); Anion Gap 8 mmol/L (4-12); Aspartate Amino Transferase 23 U/L (14-36); Bilirubin,Total 1.2 mg/dL (0.2-1.3); Blood Urea Nitrogen 8 mg/dL (7-17); Calcium 9.2 mg/dL (8.4-10.2); Carbon Dioxide 26 mmol/L (22-30); Chloride 105 mmol/L (98-107); Estimated Glomerular Filt Rate > 60; Glucose 125 mg/dL (65-110); Potassium 3.5 mmol/L (3.4-5.0); Sodium 139 mmol/L (137-145)
[2024-07-30 05:59] LABS: CA 15-3 12 U/mL (<32)
== END 2024-07-28 08:07 | disposition home or self-care (01) ==
LOC: ANHLAB 08:07
PROVIDERS: PCP Internal Medicine Pulmonary Disease; Visit Provider Internal Medicine Hematology & Oncology
DX: C50.412 Malignant neoplasm of upper-outer quadrant of left female breast (principal); Z17.0 Estrogen receptor positive status [ER+]
CPT/HCPCS: 36415; 80053; 85025; 86300

== ENCOUNTER 2024-12-18 07:56 | Outpatient (CLI) | payer MEDICARE, SELFPAY ==
--- NOTE | ~2024-12-18 | MM_ITS ---
EXAMINATION: MM screening glenn BI w delaney HISTORY: Screening TECHNIQUE: Craniocaudal and mediolateral oblique 3-D tomosynthesis images were obtained and synthetic 2-D images were generated. CAD analysis was submitted and interpreted. COMPARISON: Comparison to multiple prior studies sequentially, with oldest reviewed study dated 09/08. BREAST PARENCHYMAL COMPOSITION: Not dense: There are scattered areas of fibroglandular density. FINDINGS: There are surgical changes of lumpectomy in the upper outer quadrant of the left breast. Th ere is increased density/reticulation in this area, consistent with radiation therapy change. There i s no evidence of suspicious mass, calcification, or architectural distortion to suggest malignancy in either breast. There has been no suspicious interval change. IMPRESSION: 1. No mammographic evidence of malignancy. 2. Recommend routine screening mammography in one year. BI-RADS Category 2: Benign finding(s). Reviewed, dictated and finalized at location A.
--- OUTSIDE RECORDS SUMMARY | 2024-12-18 08:03 | XMS_ITS | Clinical Summary ---
Author Organization [facility] [address] Address [address] [address] Care Team Providers Care [employer] Name Role Phone Nisha García Primary Care Provider [phone] Source Comments [facility] [address],non-owned Affiliates and Associated Physician Practices is amultiple site organization consisting of ambulatory clinics and hospital sitesin [place], [place], [place] and [place]. This disclosure is being madepursuant to the Care Everywhere program and may not contain all information available regarding this patient. Last updated 18.[facility] [address] Allergies Active Allergy Reactions Criticality Noted Date Comments Gabapentin Other High 08/01/2020 Hmg-Coa-R Inhibitors Other High 01/30/2023 Lanolin Other,Rash High 05/02/2016 Medications * Be aware that medications may not be up to date on this document. Alwaysverify current medications with the patient. celecoxib (CeleBREX) 200 MG capsule Take 1 (one) capsule by mouth once daily Active amLODIPine (Norvasc) 10 MG tablet Take 1 (one) tablet by mouth once daily Active HYDROcodone-ernie taminophen ([place]) 5-325 MG tablet Take 1 (one) tablet by mouth every 6 hours as needed for Pain Active calcium citrate (Citracal 950) 950 MG tablet Take 200 mg by mouth once daily Active potassium chloride ER (Klor-Con M20) 20 MEQ tablet Take 1 (one) tablet by mouth once daily Active Vitamins-Lipotr opics (multiple vitamin) capsule Take by mouth once daily Active renal vitamin (Nephrocaps; Renal) 1 MG capsule Take 1 (one) capsule by mouth once daily Active Family History Medical History Relation Name Comments None Known Father Cancer - Breast Mother Relation Name Status Comments Father Mother Social History Tobacco Use Types Packs/Day Years Used Date Smoking Tobacco: Former Cigarettes Q uit: 09/22/1989 Smokeless Tobacco: Never Alcohol Use Standard Drinks/Week Comments Not Currently 0 (1 standard drink = 0.6 oz pur e alcohol) Comments Unknown Sex and Gender Information Value Date Recorded Sex Assigned at Not on file Legal Sex Female 3:03 PM CDT Gender Identity Not on file Sexual Orientation Not on file Last Filed Vital Signs Vital Sign Reading Time Taken Comments Blood Pressure 182/91 02/24/2024 9:01 AM CDT Pulse 82 02/24/2024 9:01 AM CDT Temperature 36.6 C (97.9 F) 08/21/2023 9:11 AM 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 Respiratory Rate 18 02/24/2024 9:01 AM CDT Oxygen Saturation 94% 02/24/2024 9:01 AM CDT Inhaled Oxygen Concentration - - Weight 100.2 kg (221 lb) 02/24/2024 9:01 AM CDT Height 160 cm (5' 3) 02/24/2024 9:01 AM CDT Body Mass Index 39.15 02/24/2024 9:01 AM CDT Plan of Treatment Health Maintenance Due Date Last Done Comments COLOGUARD (AGES 45-75) - COL ON CA SCREENING 1950 COLON MONITORING 1950 COLONOSCOPY - COLON CA SCREENING 1950 CT COLONOGRAPHY - COLON CA SCREENING 1950 Colorectal Cancer Screening 1950 FIT - COLON CA SCREENING 1950 FLEX SIG - COLON CA SCREENING 1950 LIPID TESTING 1950 MEDICARE AWV 12 MONTHS 1950 HEPATITIS C SCREENING 12/18/1967 DTAP/TDAP/TD VACCINES (1 - Tdap) 1968 PNEUMOCOCCAL VACCINE 50+ (1 of 1 - PCV) 12/23/1999 ZOSTER VACCINE (1 of 2) 12/23/1999 MAMMOGRAM 12/08/2022 12/08/2020 COVID-19 VACCINE (3 - 2023-2 5 season) 2024 10/17/2020, 09/16/2020 DEPRESSION SCREENING 07/22/2024 Respiratory Syncytial Virus (RSV) Vaccine Pt: or over 60 yrs (1 - 1-dose 75+ series) 2024 INFLUENZA VACCINE (Season Ended) 2025 BONE DENSITY TESTING Completed 02/03/2020, 11/06/2017 HEPATITIS B VACCINE Aged Out No longe r eligible based on patient's age to complete this topic HIB VACCINE Aged Out No longer eligi ble based on patient's age to complete this topic HPV VACCINE Aged Out No longer eligi ble based on patient's age to complete this topic MENINGOCOCCAL (Group B) VACCINE SHARED DECISION-MAKING Aged Out No longer eligible based on patient's age to complete this topic MENINGOCOCCAL GROUPS A/C/Y/W VACCINE Aged Out No longer eligible b ased on patient's age to complete this topic Insurance MEDICARE MEDICARE SUPPLEMENT PAYOR GENERIC Care Teams [employer] Relationship Specialty Start Date End Date Nisha García [address] [place], [place] [address] [address] PCP - General 02/24/24
--- OUTSIDE RECORDS SUMMARY | 2024-12-18 08:03 | XMS_ITS | CONTINUITY OF CARE DOCUMENT ---
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
--- OUTSIDE RECORDS SUMMARY | 2024-12-18 08:03 | XMS_ITS | Data Portability ---
Author Organization [facility], Main Office Address [address] [place] [address] Care Team Providers Care Rehab Therapist Name Role Phone MARIA ELENA ZACARIAS Primary Care Provider MARIA ELENA ZACARIAS Referring Provider [phone] Assessment Encounter Date Assessment Date Assessment LastModified by Organization Details LastModified Time 08/05/2024 08/05/2024 Assessment: Elevated RF (+) RHODA ?left radiation fibrosis Right basilar atelectasis RUL pneumonia, resolved Plan: The following were reviewed and explained to the patient: Chest CT 05/06/24 right basilar atelectasis, SENDY scar, RUL GGO Lab data 05/28/24 elevated RF, (+) RHODA PFT 07/30/24 nl FEV1/FVC, FEV1 1.92 L (96%), BD 90 mL = 5%, TLC 5.51 L (120%), RV 2.74 L (145%), DLCO 63%, DLCO/VA 114% Chest CT 06/08/24 right pneumonia resolved, mild atelectasis, left radiation fibrosis Patient declined rheumatologic evaluation. Methacholine challenge testing ordered. Advised to continue not to smoke. Adherence to therapy is advocated. Nonadherence may lead to treatment failure, further progression of the condition, and other complications. Hospitals admissions are often the result of individuals not taking prescription medications accurately. Alternatively, greater adherence to medication regimens have shown to lower rates of hospitalization and decrease total medical costs in patients with chronic medical conditions. Advocated influenza vaccination annually and pneumonia vaccination DARINEL. Advocated weight loss through diet and exercise. Patient's ideal body weight according to height and gender is up to 125 lbs. Encouraged patient to adjust caloric intake to maintain/achieve ideal body weight, emphasizing on fruits, vegetables, whole grains, and fat-free or low-fat products. These include lean meats, poultry, fish, beans, eggs, and nuts and foods that are low in saturated fats, trans-fats, cholesterol, salt (sodium), and glycemic index. Stressed the importance of regular exercise up to the patient's capacity limits. In this case, we recommend 20 min daily walking, 2 days a week of resistance training. Patient to monitor BP daily and bring records to PCP for further management. Follow-up: 1 week after methacholine challenge testing Not available 08/05/2024 10:32:27 10/27/2024 10/27/2024 Assessment: Elevated RF (+) RHODA ?left radiation fibrosis Right basilar atelectasis RUL pneumonia, resolved Plan: The following were reviewed and explained to the patient: Chest CT 05/06/24 right basilar atelectasis, SENDY scar, RUL GGO Lab data 05/28/24 elevated RF, (+) RHODA PFT 07/30/24 nl FEV1/FVC, FEV1 1.92 L (96%), BD 90 mL = 5%, TLC 5.51 L (120%), RV 2.74 L (145%), DLCO 63%, DLCO/VA 114% Chest CT 06/08/24 right pneumonia resolved, mild atelectasis, left radiation fibrosis Methacholine challenge 10/06/24 (-) methacholine challenge test up to level 5 Reassurance that her methacholine challenge testing is negative. Patient declined rheumatologic evaluation. Advised to continue not to smoke. Adherence to therapy is advocated. Nonadherence may lead to treatment failure, further progression of the condition, and other complications. Hospitals admissions are often the result of individuals not taking prescription medications accurately. Alternatively, greater adherence to medication regimens have shown to lower rates of hospitalization and decrease total medical costs in patients with chronic medical conditions. Advocated influenza vaccination annually and pneumonia vaccination DARINEL. Advocated weight loss through diet and exercise. Patient's ideal body weight according to height and gender is up to 125 lbs. Encouraged patient to adjust caloric intake to maintain/achieve ideal body weight, emphasizing on fruits, vegetables, whole grains, and fat-free or low-fat products. These include lean meats, poultry, fish, beans, eggs, and nuts and foods that are low in saturated fats, trans-fats, cholesterol, salt (sodium), and glycemic index. Stressed the importance of regular exercise up to the patient's capacity limits. In this case, we recommend 20 min daily walking, 2 days a week of resistance training. Patient to monitor BP daily and bring records to PCP for further management. Follow-up: as needed Not available 10/27/2024 10:29:55 Plan of Treatment Reminders Order Date Submit Date Provider Last Modified By Organization Details Last Modified Time Details Appointments Follow Up 15 2024 07:30A M JAYLEEN Gauthier Not available Not available Not available Lab hemoglobi n A1C, fingersti ck 2024 025 [facility], [address], [place], [address], 11/26/2024 09:08:04 Referral None recorded. Procedures None recorded. Surgeries None recorded. Imaging None recorded. Medication Orders Zepbound 10 mg/0.5 mL subcutane ous solution 2024 025 [place] [facility], [address], [place], [place], [phone], 11/26/2024 13:15:36 Zoryve 0.3 % topical foam 2024 025 [email or web address] 2 [id number], [address], [place], [id number], 09/07/2024 16:56:12 amlodipin e 5 mg tablet 2024 025 [facility][id number], [address], [place], [phone], 11/26/2024 08:47:54 Patient TargetsNo targets recorded. Patient Instructions Encounter Date Encounter Id Patient Instructions Last Modified By Organization Details Last Modified Time 08/05/2024 [id number] methacholine challenge* - Please call patient to schedule. ANTONINAAN [id number] w/ traditional MCR. [email or web address] Not available 09/07/2024 16:27:12 Reason for Referral None Reported. Results Created Date Observation Date Name Description Value Unit Range Abnormal Flag Note LastModifiedBy Organization Detail LastModifiedTime 11/27/19 25 11/26/2024 hemog lobin A1C, finge rstic k HgbA1C 5.[address] [facility] [address], [place], [address], 11/26/2024 08:51:40 06/12/20 24 05/01/2024 XR, chest , 2 view No observ ation record ed. BARCODE Not Available 2023 11:25:37 06/12/20 24 06/27/2016 CT, chest , w/o contr ast No observ ation record ed. [facility] Not Available 2023 11:35:00 06/12/20 24 06/27/2016 XR, chest , 2 view No observ ation record ed. BARCODE Not Available 2023 11:35:00 07/31/19 25 07/30/2024 compl ete PFT w/ post [facility] hodil ator brayan metry * No observ ation record ed. [facility] ([facility] [address] [place], [address], 07/31/2024 11:03:54 07/31/1906/08/2024 CT, chest , w/o contr ast No observ ation record ed. [facility] [address], [place], [address], 07/31/2024 15:04:21 10/28/19 25 10/06/2024 metha choli ne chall enge* No observ ation record ed. [facility] ([facility]) [address] [place], [address], 10/27/2024 08:53:38 Result Notes None recorded. Problems Name Problem SNOMED Code Status Onset Date Resolution Date Notes Provider Name and Address Organization Details Recorded Time Malignant tumor of breast 482424059 Active 2018 Left breast 11/2015 chemo/s urgery/ radiati on Not Available [facility] 3 06:01:51 Arthritis 6006916 Active 2018 Not Available [facility] 3 06:01:51 Hypertensive disorder 63454244 Active 2018 Not Available [facility] 3 06:01:51 Chronic urticaria 80752731 Active 2022 JAYLEEN Smalls [address], [place], [address] , [place] [facility] [employer] [facility] 3 12:38:21 Lumbago with sciatica 365578033 Active 2023 Violet Patterson MD [address], [place], [address] , [place] [facility] [employer] [facility] 4 09:01:37 Psoriasis of scalp 595219924 Active 2023 JAYLEEN Gauthier [address], [place], [address] , [place] [facility] [employer] [facility] 4 08:59:05 Obesity 509242399 Active 2023 JAYLEEN Gauthier [address], [place], [address] , [place] [facility] [employer] [facility] 4 08:58:36 Hyperlipidem ia 14776620 Active 2023 JAYLEEN Gauthier [address], [place], [address] , [place] [facility] [employer] [facility] 4 09:04:43 Diabetes mellitus 16238922 Active 2023 JAYLEEN Gatuhier [address], [place], [address] , [place] [facility] [employer] [facility] 4 08:39:33 Psoriatic arthritis 480692690 Active 2023 JAYLEEN Gauthier [address], [place], [address] , [place] [facility] [employer] [facility] 4 11:54:32 Anti-nuclear factor detected 865000132 Active 2024 Brenton Matta MD [address], [place], [address] , [facility] [employer] [facility] [employer] [facility] 5 10:01:35 Dyspnea on exertion 78786461 Active 2024 Brenton Matta MD [address] [facility] [address], [place], [address] , [facility] [employer] [facility] [employer] [facility] 5 10:25:41 Essential hypertension 62100437 Active 2024 JAYLEEN Gauthier [address] [facility] [facility] [address], [place], [address] , [facility] [employer] [facility] [employer] [facility] 5 09:28:45 Notes:Medical History: Urtic aria Bilateral hearing loss Eosinophils 60/uL IgE 12 IU/mL Obesity Hypertension Hypertriglyceridemia T2DM Hiatal hernia Elevated RF (+) RHODA Psoriatic arthritis Thoracolumbar spondylosis Procedure History: T&A 1956 Appendectomy 1957 Cholecystectomy 1989 Right CTS 1996 D&C 2002 Laparcoscopic banding 2011 Panniculectomy 2015t Left lumpectomy, radiation and chemotherapy 2016 Left knee arthroplasty 2019 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 Procedures Surgical History Date Name Laterality Status Provider Name and Address Organization Details Recorded Time 09/12/19 24 Medicare Wellness CPT Code, subsequent completed Alena Najera CMA [facility] 09/12/2023 08:32:42 03/01/20 20 panniculectomy completed Not Available [facility] 09/19/2022 05:56:43 Imaging Results None recorded. Procedure Notes None recorded. Medical Equipment None Reported. Allergies Allergen ID Allergen Name Allergen Category Reaction Reaction Severity Criticality Documentation Date Start Date Code Code System Note Provider Name and Address Organization Details Recorded Time Sudafed medicatio n itching severe Not available 09/19/2022 2 RxNorm hard to breat h Not Available [facility] 3 06:08:01 28173 Product containin g 3-hydroxy -3-methyl glutaryl- coenzyme A reductase inhibitor (product) medicatio n other severe Not available 09/19/2022 79809 009 SNOMED muscl e contr actio n Not Available [facility] 3 06:08:01 61210 gabapenti n medicatio n other severe Not available 09/19/2022 80778 RxNorm blurr ed visio n/los s of visio n Not Available [facility] 3 06:08:01 Medications Name Sig Start Date Stop Date Status Note LastModified by Organization Details LastModified Time celecoxib 200 mg capsule TAKE 1 CAPSULE BY MOUTH EVERY DAY NEEDED FOR PAIN active Not Available Not Available No t Available cyclobenz aprine 10 mg tablet TK ONE T PO TID active Not Available Not Available No t Available amoxicill in 500 mg capsule 12/28 completed Not Available Not Available Not Available methocarb beth 500 mg tablet Take 1 tablet 4 times a day by oral route as needed for 30 days. 04/03 completed Not Available Not Available Not Available hydrocodo ne 7.5 mg-ibupro fen 200 mg tablet 11/20 completed Not Available Not Available Not Available anastrozo le 1 mg tablet TAKE 1 TABLET BY MOUTH EVERY DAY 02/23 completed Not Available Not Available Not Available ketoconaz ole 2 % shampoo Apply 1 applicat ion 3 times a week by topical route as directed for 7 days. 05/01 completed Not Available Not Available Not Available cetirizin e 10 mg tablet TAKE ONE TABLET BY MOUTH DAILY 11/28 completed Not Available Not Available Not Available tizanidin e 4 mg tablet TAKE 1 TABLET BY MOUTH EVERY 6 HOURS NEEDED 09/12 completed Not Available Not Available Not Available fluconazo le 150 mg tablet TAKE 1 TABLET BY MOUTH EVERY DAY FOR 2 DAYS NEEDED 05/14 completed Not Available Not Available Not Available cephalexi n 250 mg capsule TAKE 1 CAPSULE BY MOUTH EVERY 6 HOURS 04/03 completed Not Available Not Available Not Available hydrocodo ne 5 mg-acetam inophen 325 mg tablet TAKE 1 TABLET BY MOUTH EVERY 4 TO 6 HOURS NEEDED FOR PAIN 09/12 completed Not Available Not Available Not Available clobetaso l 0.05 % topical cream 11/20 completed Not Available Not Available Not Available diphenoxy late-atro pine 2.5 mg-0.025 mg tablet 11/20 completed Not Available Not Available Not Available meclizine 12.5 mg tablet 11/20 completed Not Available Not Available Not Available phentermi ne 37.5 mg tablet TK 1 T PO QD 11/20 completed Not Available Not Available Not Available amlodipin e 5 mg tablet TAKE 1 TABLET BY MOUTH EVERY DAY DIRECTED 11/26 completed Not Available Not Available Not Available prochlorp erazine maleate 10 mg tablet 11/20 completed Not Available Not Available Not Available mefloquin e 250 mg tablet 11/20 completed Not Available Not Available Not Available sulfameth oxazole 800 mg-trimet hoprim 160 mg tablet 11/20 completed Not Available Not Available Not Available triamcino lone acetonide 0.1 % topical cream APPLY A THIN LAYER TOPICALL Y TO THE AFFECTED AREA TWICE DAILY 11/28 completed Not Available Not Available Not Available amoxicill in 500 mg tablet TAKE 4 TABLET BY MOUTH 1 HOURS PRIOR TO APPT 09/12 completed Not Available Not Available Not Available lidocaine -prilocai ne 2.5 %-2.5 % topical cream 11/20 completed Not Available Not Available Not Available oxycodone -acetamin ophen 5 mg-325 mg tablet Take 1 tablet 4 times a day by oral route as needed. active Not Available Not Available No t Available lidocaine 1 %-epineph rine 1:100,000 injection solution 1 ml sc at base of lesion 05/15 completed Not Available Not Available Not Available amoxicill in 875 mg tablet TAKE 1 TABLET IMMEDIAT MISAEL THEN TAKE 1 TABLET TWICE DAILY UNTIL ALL TAKEN 09/12 completed Not Available Not Available Not Available amlodipin e 10 mg tablet TAKE 1 TABLET BY MOUTH EVERY DAY 11/26 completed Not Available Not Available Not Available benzonata te 100 mg capsule TAKE 1 CAPSULE BY MOUTH EVERY 8 HOURS NEEDED 05/01 completed Not Available Not Available Not Available hydrocodo ne 7.5 mg-acetam inophen 325 mg tablet TAKE 1 TABLET BY MOUTH TWICE DAILY NEEDED FOR TRAVEL active Not Available Not Available No t Available cephalexi n 500 mg capsule 11/20 completed Not Available Not Available Not Available codeine sulfate 60 mg tablet TK 1 T PO Q 8 H PRN 11/20 completed Not Available Not Available Not Available nystatin 100,000 unit/gram topical cream APPLY TOPICALL Y TO THE AFFECTED AREA TWICE DAILY NEEDED FOR RASH 11/28 completed Not Available Not Available Not Available dexametha sone 4 mg tablet 11/20 completed Not Available Not Available Not Available hydrochlo rothiazid e 12.5 mg capsule 11/20 completed Not Available Not Available Not Available Klor-Con/ EF 25 mEq effervesc ent tablet DIS AND DRK 1 T PO D 11/20 completed Not Available Not Available Not Available codeine sulfate 30 mg tablet 11/20 completed Not Available Not Available Not Available lorazepam 1 mg tablet 11/20 completed Not Available Not Available Not Available calcipotr iene 0.005 % scalp solution APPLY A SUFFICIE NT AMOUNT TO COVER THE LESIONS IN THE AFFECTED AREA(S) BY TOPICAL ROUTE 2 TIMES PER DAY ; RUB IN GENTLY AND COMPLETE LY 11/26 completed Not Available Not Available Not Available levofloxa ryan 750 mg tablet TAKE 1 TABLET BY MOUTH EVERY DAY FOR 7 DAYS DIRECTED 05/14 completed Not Available Not Available Not Available scopolami ne 1 mg over 3 days transderm al patch 1 patch behind ear q3 day. Apply 4 hours before boarding ship 12/28 completed Not Available Not Available Not Available methylpre dnisolone 4 mg tablets in a dose pack TAKE 1 TABLET BY MOUTH THREE TIMES DAILY 05/01 completed Not Available Not Available Not Available albuterol sulfate HFA 90 mcg/actua tion aerosol inhaler INHALE 2 PUFFS BY MOUTH EVERY 4 HOURS 05/14 completed Not Available Not Available Not Available metformin ER 500 mg tablet,ex tended release 24 hr TAKE 1 TABLET BY MOUTH EVERY DAY DIRECTED 11/26 completed Not Available Not Available Not Available doxycycli ne hyclate 100 mg tablet TAKE 1 TABLET BY MOUTH TWICE DAILY FOR 7 DAYS DIRECTED 05/14 completed Not Available Not Available Not Available tamoxifen 20 mg tablet TAKE 1 TABLET BY MOUTH EVERY DAY 05/01 completed Not Available Not Available Not Available amoxicill in 875 mg-potass ium clavulana te 125 mg tablet TAKE 1 TABLET BY MOUTH EVERY 12 HOURS WITH MEALS FOR 7 DAYS 05/14 completed Not Available Not Available Not Available neomycin- polymyxin -hydrocor t 3.5 mg-10,000 unit/mL-1 % ear drops,gracie p SHAKE LIQUID AND INSTILL 4 DROPS TO AFFECTED EAR THREE TIMES DAILY FOR 7 DAYS 11/28 completed Not Available Not Available Not Available Klor-Con M20 mEq tablet,ex tended release TAKE 1 TABLET BY MOUTH EVERY DAY 11/28 completed Not Available Not Available Not Available clobetaso l 0.05 % shampoo Apply by topical route for 20 days. 2023 active Not Available Not Available Not Avai lable nitrofura ntoin monohydra te/macroc rystals 100 mg capsule Take 1 capsule every 12 hours by oral route for 7 days. 11/28 completed Not Available Not Available Not Available tizanidin e 6 mg capsule TAKE 1 CAPSULE BY MOUTH 3 TIMES A DAY NEEDED FOR MUSCLE SPASM 05/15 completed Not Available Not Available Not Available Suprep Bowel Prep Kit 17.5 gram-3.13 gram-1.6 gram oral solution 12/28 completed Not Available Not Available Not Available Xarelto 10 mg tablet 02/19 completed Not Available Not Available Not Available potassium chloride ER 20 mEq tablet,ex tended release Take 1 tablet every day by oral route. 12/28 completed Not Available Not Available Not Available Otezla Starter 10 mg (4)-20 mg (4)-30 mg(47) tablets in a dose pack Take as directed 11/26 completed Not Available Not Available Not Available Fluzone High-Dose 8458-9993 (PF) 180 mcg/0.5 mL intramusc ular syringe ADM 0.5ML IM UTD 11/20 completed Not Available Not Available Not Available Xolair 75 mg/0.5 mL subcutane ous syringe Inject by subcutan eous route for 28 days. 11/28 completed Not Available Not Available Not Available Wegovy 0.25 mg/0.5 mL subcutane ous pen injector Inject 0.25 mg every week by subcutan eous route as directed for 28 days. 06/03 completed Not Available Not Available Not Available Zoryve 0.3 % topical cream APPLY TOPICALL Y TO THE AFFECTED AREA DAILY active Not Available Not Available No t Available Ozempic 0.25 mg or 0.5 mg (2 mg/3 mL) subcutane ous pen injector INJECT 0.25 MG UNDER THE SKIN DIRECTED FOR 28 DAYS 11/26 completed Not Available Not Available Not Available Zoryve 0.3 % topical foam APPLY A THIN LAYER TO THE AFFECTED AREA(S) BY TOPICAL ROUTE ONCE DAILY 09/07 completed insuranc e would not approve auth Not Available Not Available Not Available Zepbound 5 mg/0.5 mL subcutane ous solution INJECT 0.5 ML (5 MG) UNDER THE SKIN ONCE WEEKLY (0.5ML= 50 UNITS) 2024 active Not Available Not Available Not Avai lable Zepbound 10 mg/0.5 mL subcutane ous solution Inject 0.5 mL every week by subcutan eous route as directed for 28 days. 2024 active Not Available Not Available Not Avai lable Vitals Date Recorded Heart rate Provider Name an d Address Organization Details Last Updated DateTime 08/05/2024 86 /min Brenton Matta MD [address], [address], [facility] 08/05/2024 10:33:18 Date Recorded Body height Body mass index (BMI) Body weight Body temperature Heart rate Respiratory rate Oxygen saturation Oxygen saturation in Arterial blood by Pulse oximetry Systolic blood pressure Diastolic blood pressure Provider Name and Address Organization Details Last Updated DateTime 5 160.02 cm 38.8 kg/m2 72842.7 3 g 98.6 [degF] 86 /min 16 /min 98 % 98 % 110 mm[Hg] 70 mm[Hg] Alena Shore MA [facility] [employer] 10:06:15 Date Recorded Body height Body mass index (BMI) Body weight Body temperature Heart rate Respiratory rate Oxygen saturation Oxygen saturation in Arterial blood by Pulse oximetry Systolic blood pressure Diastolic blood pressure Provider Name and Address Organization Details Last Updated DateTime 160.02 cm 38.2 kg/m2 32440.4 6 g 97.1 [degF] 90 /min 24 /min 93 % 93 % 146 mm[Hg] 82 mm[Hg] Tiana Vazquez RN [facility] [employer] 09:27:55 Date Recorded Body height Body mass index (BMI) Body weight Heart rate Body temperature Heart rate Respiratory rate Oxygen saturation Oxygen saturation in Arterial blood by Pulse oximetry Systolic blood pressure Diastolic blood pressure Provider Name and Address Organization Details Last Updated DateTime 5 160.02 cm 36.3 kg/m2 83394.4 4 g 81 /min 98 [degF] 81 /min 15 /min 98 % 98 % 124 mm[Hg] 80 mm[Hg] Brenton Mtata MD [address], [place], [address], [place] [employer] [employer] 5 10:32:43 Date Recorded Body height Body mass index (BMI) Body weight Body temperature Heart rate Respiratory rate Oxygen saturation Oxygen saturation in Arterial blood by Pulse oximetry Systolic blood pressure Diastolic blood pressure Provider Name and Address Organization Details Last Updated DateTime 5 160.02 cm 35.6 kg/m2 98884.0 7 g 97.2 [degF] 84 /min 16 /min 98 % 98 % 118 mm[Hg] 74 mm[Hg] Jo-Ann Garcia RN [facility] 5 08:37:47 Date Recorded Body height Body mass index (BMI) Body weight Body temperature Respiratory rate Heart rate Oxygen saturation Oxygen saturation in Arterial blood by Pulse oximetry Systolic blood pressure Diastolic blood pressure Provider Name and Address Organization Details Last Updated DateTime 4 160.02 cm 39.3 kg/m2 664794. 51 g 97.31 [degF] 20 /min 91 /min 97 % 97 % 120 mm[Hg] 78 mm[Hg] Tiana Vazquez RN [facility] [employer] 4 09:15:20 Social History Question Answer Notes LastModified by Organizat ion Details LastModified Time Tobacco Smoking Status Former Smoker quit 1989 Violet Patterson MD [address], [place], [address], [employer] 09/12/2023 08:41:18 Do You Have An Advance Directive? Yes Information not available 11/29/2023 Are You Blind Or Do You Have Difficulty Seeing? Yes Wears Glasses Information not available 11/29/2023 What Is Your Level Of Caffeine Consumption? Occasional [id number] Information not available 09/19/2022 In The 14 Days Before Symptom Onset, Have You Had Close Contact With A Laboratory-confir med COVID-19 While That Case Was Ill? No [id number] Information not available 09/19/2022 In The 14 Days Before Symptom Onset, Have You Had Close Contact With A Person Who Is Under Investigation For COVID-19 While That Person Was Ill? No [id number] Information not available 09/19/2022 Are You Deaf Or Do You Have Serious Difficulty Hearing? Yes Wears Hearing Aids Information not available 11/29/2023 What Type Of Diet Are You Following? REGULAR [id number] Information not available 09/19/2022 Have There Been Any Changes To Your Family Or Social Situation? No Information no t available 11/29/2023 Are There Any Guns Present In Your Home? Yes Information not available 11/29/2023 Do You Use Insect Repellent Routinely? No Information not available 11/29/2023 Where Do You Live? Other Michel Information not available 11/29/2023 Advance Directive- Providers Has Reviewed Directive And Consents To Follow Them (insert Provider Name With Any Objectives In Notes Field) No Information not available 05/01/2024 Presence Of Domestic Violence No Information no t available 05/01/2024 Guns Present In The Home? Yes Locked In Safe Information not available 05/01/2024 Are You Able To Care For Yourself? Yes Information not available 05/01/2024 Are You Blind Or Do Yo Have Difficulty Seeing? Yes Glasses Information not available 05/01/2024 Are You Deaf Or Do You Have Serious Difficulty Hearing? Yes Hearing Aids Information not available 05/01/2024 General Stress Level? Moderate Information not available 05/01/2024 Live Alone Of With Others? Alone Information not available 05/01/2024 Do You Have A Medical Power Of Break Out Worker? Yes Information not available 11/29/2023 What Was The Date Of Your Most Recent Tobacco Screening? 09/12/2023 [email or web address] Information not available 09/12/2023 How Many Children Do You Have? 0 Information not available 11/29/2023 Do You Have Any Pets? Yes Information not available 11/29/2023 What Is Your Relationship Status? Information not available 11/29/2023 Do You Use Your Seat Belt Or Car Seat Routinely? Yes Information not available 11/29/2023 Do You Have Smoke And Carbon Monoxide Detectors In Your Home? No Information not available 11/29/2023 Are You Passively Exposed To Smoke? No Information no t available 11/29/2023 Are There Any Smokers In Your House? No Information not available 11/29/2023 Do You Participate In Social Media? No Information not available 11/29/2023 Do You Use Sunscreen Routinely? No Information not available 11/29/2023 Have You Recently Traveled Abroad? No Information not available 11/29/2023 Do You Have Difficulty Walking Or Climbing Stairs? No Information not available 11/29/2023 Do You Have Any Dietary Restrictions? No [id number] Information not available 09/19/2022 Sex: Unknown Functional Status Question Answer Note LastModified by [employer] Details LastModified Time Do you use any illicit or recreational drugs? No [id number] Information not available 09/19/2022 What is your level of alcohol consumption? None [id number] Information not available 09/19/2022 Are you currently employed? No Information not available 11/29/2023 Do you have transportation difficulties? No Information not available 05/14/2024 Are you able to walk? YESWOREST Information not available 11/29/2023 Do you have difficulty doing errands alone? No Information not available 11/29/2023 Are you able to care for yourself? Yes Information n ot available 11/29/2023 Do you have difficulty dressing or bathing? No Information not available 11/29/2023 What is your exercise level? None [id number] Information not available 09/19/2022 Mental Status Question Answer Note LastModified by Organizat ion Details LastModified Time Do you feel stressed (tense, restless, nervous, or anxious, or unable to sleep at night)? [id number] Information not available 05/01/2024 Do you have difficulty concentrating, remembering or making decisions? No Information no t available 11/29/2023 Family History Relationship Description Onset Age of this Age Resolved Age Notes LastModified by Organization Details LastModified Time Mother Malignant tumor of breast [email or web address] Not available 2023 08:40:27 Maternal Grandfather Heart disease [email or web address] Not available 2023 09:10:12 Medical History Condition Response OTHER # 1 Y ASTHMA Y HYPERTENSION Y CANCER: SPECIFY Y ANXIETY DISORDER Y Gynecological History Statement/Question Response Date of Last Colonoscopy Most Recent Bone Density Sexually Active? N Menses Monthly N STIs/STDs N Current Control Method Menopause Most Recent Mammogram Breast Problems no Discharge no Obstetrics History GPAL:G 0 P 0 0 0 0 Immunizations Vaccine Type Date Status Note Provider Nam e and Address Organization Details Recorded Time Tdap 09/05/2018 completed Not Available [employer] 09/19/2022 06:07:53 Past Encounters Encounter ID Performer Location Encounter Start Date Encounter Closed Date Diagnosis/Indication Diagnosis SNOMED-CT Code Diagnosis ICD10 Code Diagnosis Note [id number] Violet Patterson MD [facility] Primary Care [address] [place] [address] 02/23/2021 00:00:00 03/01/2021 20:54:35 [id number] Violet Patterson MD [facility] Primary Care [facility] [address] [place] [address] [address] [place] [address] 03/17/2021 00:00:00 03/17/2021 18:28:08 [id number] [facility] [address] [place] [address] [address] [place] [address] 04/03/2021 00:00:00 04/19/2021 10:05:08 [id number] Violet Patterson MD [address] [place] [address] 05/15/2021 00:00:00 05/15/2021 21:30:[id number] [facility] Primary Care Mandy shaikh [address] [place] [address] [address] [place] [address] 02/20/2022 00:00:00 02/20/2022 09:56:[id number] [facility] Primary Care Mandy shaikh [address] [place] [address] [address] [place] [address] 06/18/2022 00:00:00 06/18/2022 16:43:10 [id number] Violet Patterson MD [facility] Care [place] [address] [place] [address] 11/23/2022 12:22:08 11/23/2022 12:51:26 Chronic urticaria 70489405 L50.8 ChronicMin imal improvemen t with otc topical cream, Zyrtec x 3 weeks, or Benadryl.W ill give rx for topical triamcinol one cream. Encouraged pt to continue to take antihistam roxanna. Will order Xolair per patient request. Pt aware it will likely require PA. Lumbago with sciatica 20 9699858 M54.42 ChronicNo improvemen t with rest, sx worsen with activity. Previous failures with cyclobenza santiago, methocarba mol, generic Celebrex, tizanidine .Ordered MRIReferre d to neurosurge ry per patient request (Dr. Get Umanzor on)Pain medication refill given, uses very sparingly. Pt agrees to guard from theft, take only as prescribed . Aware of risk for abuse/misu se. [id number] Violet Patterson MD [facility] Primary Care [place] [address] [place] [address] 09/12/2023 08:28:37 09/12/2023 09:07:53 Adult health examination 004565301 Z00.00 DEXA ordered (osteopeni a)Mammogra m ordered by oncology Dr. Burton movax 23 (2021)Leon mmend prevnar 20Recommen d shingrix vaccine seriesReco mmend flu vaccine annuallyRe commend covid boosterNon smoker for 15+ years, no LDCCTColon oscopy 2019 normal, no repeat neededFast ing labs up to date Screening for disorder 439595974 Z13.9 Lumbago with sciatica 20 0521979 M54.40 sees pain management s/p RFAPt understand s this medication has risk for abuse/depe ndence and agrees to take it only as prescribed and to guard from loss/theft [place] prescripti on monitoring website reviewed Postmenopausal state 764 60157 Z78.0 Seborrheic dermatitis 50 812350 L21.9 dandruff shampoook to continue triamcinol onenystati n cream bid prn Essential hypertension 90694531 I10 stablerefi ll given [id number] Bakari Boss MD [facility] [address] 11/29/2023 08:27:50 11/29/2023 10:11:34 Psoriasis of scalp 723069797 L40.9 If not resolved after 4 weeks, will consider derm referral Essential hypertension 66893009 I10 Arthritis 4250164 M19.90 [id number] Bakari Boss MD [address] [address] 05/01/2024 09:20:15 05/01/2024 10:06:12 Cough 60434314 R05.9 [id number] Bakari Boss MD [facility] [address] 05/14/2024 08:56:52 05/14/2024 09:41:20 Chronic cough 74703498 R05.3 Breztri sample given in office, advised to take 2 puff BID [id number] Brenton Matta MD [facility] [place] [place] Pulmonolo gy [address] [place] [address] 05/19/2024 08:27:26 05/19/2024 13:39:38 Dyspnea on exertion 44666013 R06.09 R05.3 T78.40XA D89.9 [id number] Bakari Boss MD [facility] [address] 05/28/2024 08:24:09 05/28/2024 09:39:34 Obesity 884382474 E66.9 Comorbidit ies include hypertensi on, hyperlipid emia, joint pain Polyarthropathy 65853187 M13.0 Hyperlipidemia 22923994 E78.5 Hypertensive disorder 38 469393 I10 [id number] Bakari Boss MD [facility] [address] 06/04/2024 14:25:04 06/04/2024 15:20:58 Psoriatic arthritis 356720650 L40.50 Otezla rebeling PA, pt will get from mail order Diabetes mellitus 660312 09 E11.9 Ozempic sample given in office, pt tolerated well. Will attempt to get through pharmacy [id number] Bakari Boss MD [address] [address] 07/10/2024 09:07:30 07/10/2024 09:30:09 Diabetes mellitus 65826016 E11.9 Ozempic sample given in office, pt tolerated well. Will attempt to get through pharmacyLa st A1C 6.5 05/28/24Wi ll continue w Q 3 month appts [id number] Brenton Matta MD [facility] [place] [place] Pulmonolo gy [address] [address] 08/05/2024 09:54:01 08/05/2024 15:51:28 Anti-nuclear factor detected 036516817 R76.8 Dyspnea on exertion 6084 5006 R06.09 R05.3 [id number] Bakari Boss MD [address] [address] 08/12/2024 09:16:43 08/12/2024 09:56:38 Psoriasis of scalp 853820795 L40.9 If not resolved after 4 weeks, will consider derm referral Essential hypertension 78678618 I10 Episodes of hypotensio n with weight loss, amlodipine decreased Diabetes mellitus 144504 09 E11.9 Ozempic sample given in office, pt tolerated well. Will attempt to get through pharmacyLa st A1C 6.5 05/28/24Wi ll continue w Q 3 month appts Anti-nucle ar factor detected 956513336 R76.8 Reassured that this is not always lupus, advised to continue FU with rheum [id number] Brenton Matta MD [facility] [place] [place] Pulmonolo gy [place] [id number] [facility] [address] [place] [address] 10/27/2024 10:15:47 10/28/2024 13:09:14 Anti-nuclear factor detected 465064455 R76.8 Dyspnea on exertion 6084 5006 R06.09 R05.3 [id number] JAYLEEN Gauthier [facility] [address] [address] 11/26/2024 08:27:00 11/26/2024 09:00:50 Obesity 503591297 E66.9 Comorbidit ies include hypertensi on, hyperlipid emia, joint pain Diabetes mellitus 704909 09 E11.9 Ozempic sample given in office, pt tolerated well. Will attempt to get through pharmacyLa st A1C 6.5 05/28/24Wi ll continue w Q 3 month appts Essential hypertension 40192102 I10 Episodes of hypotensio n with weight loss, amlodipine discontinu ed Health Concerns Section Related Observation LastModified by Organization Detai ls LastModified Time None Recorded Concern Status LastModified by Organization Details LastModified Time None Recorded Advance Directives Directive Y: Payers Encounter Date Sequence Insurance Name Policy Number Policy Saleem Covered Member ID Saleem Member ID Guarantor Name 07/10/2024 1 [place] Tabitha Alcaraz [id number] Tabitha Alcaraz 07/10/2024 2 [employer] (MEDICARE SUPPLEMENT) Tabitha Alcaraz [id number] Tabitha Alcaraz 08/05/2024 1 [place] Tabitha Alcaraz [id number] Tabitha Alcaraz 08/05/2024 2 [employer] (MEDICARE SUPPLEMENT) Tabitha Alcaraz [id number] Tabitha Alcaraz 08/12/2024 1 [place] Tabitha Alcaraz [id number] Tabitha Alcaraz 08/12/2024 2 [employer] (MEDICARE SUPPLEMENT) Tabitha Alcaraz [id number] Tabitha Alcaraz 10/27/2024 1 [place] Tabitha Alcaraz [id number] Tabitha Alcaraz 10/27/2024 2 [employer] (MEDICARE SUPPLEMENT) Tabitha Alcaraz [id number] Tabitha Alcaraz 11/26/2024 1 [place] Tabitha Alcaraz [id number] Tabitha Alcaraz 11/26/2024 2 [employer] (MEDICARE SUPPLEMENT) Tabitha Alcaraz [id number] Tabitha Alcaraz Notes Date Note Type Note Provider Name and Address Organization Details Recorded Time 4 text/html Tabitha Alcaraz is a 73 year old female patient here today for an Ozempic FU She began Ozempic on 06/04/24 and has lost 15.6 lbs since. She states she is tolerating the medication well and her cravings are decreased. She would like to continue with Ozempic at this time. A1C 6.5 05/28/24 JAYLEEN Gauthier [address], [address], [facility] [employer] Ritani 07/10/2024 09:32:50 5 text/html Primary care/Referring provider: JAYLEEN Gauthier CC: I have an abnormal chest CT finding on 05/06/24 and was given a course of amoxicillin and levofloxacin, one week each. Patient is here to go over shortness of breath evaluation/management. Initial development of shortness of breath: uration of shortness of breath: 5 monthsCondition of shortness of breath: improvedTiming of shortness of breath: noneFrequency: less than once a dayLimits activities: yesAggravating factors: walking, lifting water bottles, moving furnitureAlleviating factors: rest Modified [employer] [place] (mMRC) Dyspnea Scale - Grade 1Grade 0 I only get breathless with strenuous exercise .Grade 1 I get short of breath when hurrying on the level or walking up a slight hill .Grade 2 I walk slower than people of the same age on the level because of breathlessness or have to stop for breath when walking at my own pace on the level .Grade 3 I stop for breath after walking about 100 yards or after a few minutes on the level .Grade 4 I am too breathless to leave the house or I am breathless when dressing . Treatment history: amoxicillin/clavulanate 875/125 mg 1 po q12 05/01/24 -05/07/24levofloxacin 750 mg daily 05/08/24 - 05/14/24 Other symptoms:Drooling: noDysarthria: noNeck pain: noOdynophagia: noDysphagia: noWeak mastication: noFacial weakness: noNasal speech: noProtruding tongue: noProductive cough: noWheezing: yesChest tightness: yesOrthopnea: noFrequent throat clearing or swallowing: yesPalpitations: noHeartburn: noEdema: yes Environmental exposures:Nicotine smoke: 1 ppd 6728-2536 (quit 10 years in between) = 14 pack yearsPaint: noDye: noDust mites: yesMold: noDamp basement: noWood burning stove: noAnimal dander: dogsCockroaches: noPollen: yesArsenic: noAsbestos: noBeryllium: noCadmium: noChromium: noCoal smoke: noDiesel fumes: noNickel: noSilica: noSoot: no EPWORTH SLEEPINESS SCALE (ESS) CHANCE OF DOZING SCORE0 = would never doze1 = slight chance of dozing2 = moderate chance of dozing3 = high chance of dozing SITUATION AND CHANCE OF DOZINGSitting and reading - 1Watching television - 0Sitting inactive in a public place (e.g. a theater or meeting) - 0As a passenger in a car for an hour without a break - 0Lying down to rest in the afternoon when circumstances permit - 2Sitting and talking to someone - 0Sitting quietly after lunch without alcohol - 0In a car, while stopped for a few minutes in the traffic - 0TOTAL SCORE 3Subjectively, patient has a slight chance of dozing. Brenton Matta MD [address] [facility], [place], [address], [employer] 08/05/2024 10:37:21 5 text/html Tabitha Alcaraz is a 73 year old female patient here today for a FU on labs She has been seeing pulmonology for possible asthma. She is still having difficulties breathing Recent labs show positive RHODA, she is concerned this is lupus. Concerns with persistent psoriasis behind the eye, insurance denied Otezla, would like to try methotrexate. Advised to trial Zoryve first. Is taking Ozempic 0.5 and notes a 25 pound weight loss History of hypertension, has been having hypotension at home, likely related to weight loss. Would like to decrease amlodipine to 5 mg JAYLEEN Gauthier [address] [facility], [place], [address], [employer] 08/12/2024 10:34:25 5 text/html Primary care/Referring provider: JAYLEEN Gauthier Patient is here to go over her methacholine challenge testing as part of her shortness of breath evaluation/management. Initial development of shortness of breath: 4Duration of shortness of breath: 8 monthsCondition of shortness of breath: improvedTiming of shortness of breath: noneFrequency: less than once a dayLimits activities: yesAggravating factors: walking, lifting water bottles, moving furnitureAlleviating factors: rest Modified [employer] [place] (mMRC) Dyspnea Scale - Grade 1Grade 0 I only get breathless with strenuous exercise .Grade 1 I get short of breath when hurrying on the level or walking up a slight hill .Grade 2 I walk slower than people of the same age on the level because of breathlessness or have to stop for breath when walking at my own pace on the level .Grade 3 I stop for breath after walking about 100 yards or after a few minutes on the level .Grade 4 I am too breathless to leave the house or I am breathless when dressing . Treatment history: amoxicillin/clavulanate 875/125 mg 1 po q12 05/01/24 -05/07/24levofloxacin 750 mg daily 05/08/24 - 05/14/24 Other symptoms:Drooling: noDysarthria: noNeck pain: noOdynophagia: noDysphagia: noWeak mastication: noFacial weakness: noNasal speech: noProtruding tongue: noProductive cough: noWheezing: yesChest tightness: yesOrthopnea: noFrequent throat clearing or swallowing: yesPalpitations: noHeartburn: noEdema: yes Environmental exposures:Nicotine smoke: 1 ppd 5594-8506 (quit 10 years in between) = 14 pack yearsPaint: noDye: noDust mites: yesMold: noDamp basement: noWood burning stove: noAnimal dander: dogsCockroaches: noPollen: yesArsenic: noAsbestos: noBeryllium: noCadmium: noChromium: noCoal smoke: noDiesel fumes: noNickel: noSilica: noSoot: no EPWORTH SLEEPINESS SCALE (ESS) CHANCE OF DOZING SCORE0 = would never doze1 = slight chance of dozing2 = moderate chance of dozing3 = high chance of dozing SITUATION AND CHANCE OF DOZINGSitting and reading - 0Watching television - 1Sitting inactive in a public place (e.g. a theater or meeting) - 0As a passenger in a car for an hour without a break - 0Lying down to rest in the afternoon when circumstances permit - 1Sitting and talking to someone - 0Sitting quietly after lunch without alcohol - 1In a car, while stopped for a few minutes in the traffic - 0TOTAL SCORE 3Subjectively, patient has a slight chance of dozing. Brenton Matta MD [address] [place] [address], [facility] [address], [place], [address], [facility] [employer] Ritani 10/27/2024 10:38:09 5 text/html Tabitha Alcaraz is a 73 year old female patient here today for a 6 month FU She has been using Zoryve She is taking Zepbound weekly for the last month, she has lost 35lbs, but is now hanging out at the same weight. She would like to lose an additional 30 lbs. Would like to increase History of hypertension. She was taking amlodipine 10 mg, we decreased to 5mg at her last visit, she is still having low blood pressure, we will stop this. Maria Elena Zacarias, [employer] [address] [facility], [facility] [address], [place], [address], [facility] 11/26/2024 09:29:20 OBGyn Episode No OBEpisode recorded."
--- OUTSIDE RECORDS SUMMARY | 2024-12-18 08:04 | XMS_ITS | Clinical Summary ---
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 Active acetaminophen-c affeine 500-65 MG Tablet Take 1 Tab by mouth every 4 hours as needed. Active Calcium Citrate 200 MG Tablet Take by mouth daily. Active B Complex Vitamins (VITAMIN B COMPLEX PO) Take by mouth daily. Active celecoxib (CeleBREX) 200 MG Capsule Take 200 mg by mouth daily. Active amLODIPine (NORVASC) 10 MG Tablet Take 10 mg by mouth daily. Active POTASSIUM CHLORIDE PO Take by mouth daily. Active Semaglutide (OZEMPIC, 0.25 OR 0.5 MG/DOSE, SC) by Subcutaneous route. Active Active Problems Problem Noted Date Diagnosed Date History of lymph node dissection of left axilla 06/09/2019 Overview (06/09/2019): Left axillary lymph node dissection with needle localization 05/04/[address] [facility] following neoadjuvant chemotherapy for clinical stage IIA ([id number]) left breast cancer at presentation. History of hormone therapy 03/11/2018 Overview (06/12/2022): Started letrozole 04/27/2017. Letrozole discontinued 02/18/2020 and tamoxifen started secondary to low bone density on DEXA study. Tamoxifen was discontinued 07/31/2021 completing her adjuvant endocrine therapy. History of immunotherapy 03/11/2018 Overview (03/11/2018): Completed 1 year of Herceptin 04/26/2017. Obesity, Class II, BMI 35-39.9 03/11/2018 Loss of weight 03/11/2018 Overview (03/11/2018): Intentional with diet and activity changes. History of cancer chemotherapy 03/05/2017 Overview (06/09/2019): 6 cycles of neoadjuvant TCH-Perjeta from 12/21/2015 thru 04/05/[address] [facility]. History of therapeutic radiation 09/04/2016 Overview (09/04/2016): Completed radiotherapy to her left breast and clavicular region 08/06/2016. History of left breast cancer 06/08/2016 Cancer Staging:Clinical stage from 06/05/2016:Stage IIA(T0, N1, cM0, Free text: Occult primary. Triple positive disease) - Signed by Arnaldo Guerrero MD on 06/08/2016 Pathologic:Stage IIA(T1c, N1a, cM0, Free text: After neoadjuvant therapy.) - Signed by Arnaldo Guerrero MD on 06/08/2016 Overview (06/09/2019): Pathological stage IIA ([id number]) triple positive well differentiated invasive ductal carcinoma of her left breast. She had clinical stage IIA ([id number]) left breast cancer at presentation. She received 6 cycles of neoadjuvant TCH-Perjeta from 12/21/2015 thru 04/05/2016 followed by left axillary lymph node dissection with needle localization 05/04/2016 after which she was referred for radiotherapy. After completion of neoadjuvant TCH-Perjeta she continued on Herceptin. She completed left breast and clavicular radiotherapy 08/06/2016. She completed 1 year of Herceptin 04/26/2017 and started adjuvant anastrozole 04/27/2017. Resolved Problems Problem Noted Date Diagnosed Date Resolved Date History of partial mastectomy, left 03/05/2017 06/09/2019 Overview (03/05/2017): 05/04/2016 Morbid obesity with BMI of 40.0-44.9, adult 03/05/2017 03/11/2018 History of left breast cancer 09/04/2016 06/09/2019 Overview (03/11/2018): Pathological stage IIA ([id number]) triple positive well differentiated invasive ductal carcinoma of her left breast. She had clinical stage IIA ([id number]) left breast cancer at presentation. She received neoadjuvant TCH-Perjeta followed by breast conserving surgery after which she was referred for radiotherapy. She completed left breast and clavicular radiotherapy 08/06/2016. She completed 1 year of Herceptin 04/26/2017. Acute radiation dermatitis 07/09/2016 0 09/04/2016 Immunizations Immunization Administration Dates Next Due Covid-19, Mrna, Lnp-s, PF, 1 00 mcg/0.5 mL Dose (Moderna) 10/17/2020,09/16/2020 Family History Medical History Relation Name Comments Breast Cancer Mother Relation Name Status Comments Mother Social History Tobacco Use Types Packs/Day Years Used Date Smoking Tobacco: Former Cigarettes 1 15 0 12/03/1974 - 12/03/1989 Smokeless Tobacco: Never Tobacco Cessation:Counseling Given: Not Answered Alcohol Use Standard Drinks/Week Comments No 0 (1 standard drink = 0.6 oz pur e alcohol) Comments No Sex and Gender Information Value Date Recorded Sex Assigned at Not on file Legal Sex Female 7:52 PM CDT Gender Identity Not on file Sexual Orientation Not on file Last Filed Vital Signs Vital Sign Reading Time Taken Comments Blood Pressure 122/79 06/23/2024 9:12 AM COSMETICS COUNTER MANAGER Pulse 91 06/23/2024 9:12 AM COSMETICS COUNTER MANAGER Temperature 36 C (96.8 F) 06/23/2024 9:12 AM COSMETICS COUNTER MANAGER Respiratory Rate 18 06/12/2023 9:36 AM COSMETICS COUNTER MANAGER Oxygen Saturation 96% 06/23/2024 9:12 AM COSMETICS COUNTER MANAGER Inhaled Oxygen Concentration - - Weight 102.9 kg (226 lb 14.4 oz) 06/23/2024 9:12 AM COSMETICS COUNTER MANAGER Height 160 cm (5' 3) 06/23/2024 9:12 AM COSMETICS COUNTER MANAGER Body Mass Index 40.19 06/23/2024 9:12 AM COSMETICS COUNTER MANAGER Plan of Treatment Health Maintenance Due Date Last Done Comments Hepatitis C Virus (HCV) Screening 1950 Colonoscopy 1994 Colorectal Cancer Screening 1994 Cologuard 12/23/1999 Immunochemical Fecal Occult Blood 12/23/1999 Zoster Immunization (2 of 3) 12/15/2012 10/20/2012 DEXA Bone Density 02/02/2022 02/03/2020, 11/06/2017 Pneumococcal Immunization (50+ years) (2 of 2 - PCV) 04/17/2022 04/17/2021 Mammogram 12/14/2023 12/13/2022, 11/20, 12/03/2019, Additional history exists SARS-COV-2 Immunization ( season) 2024 06/06/2021, 10/17/2020, 09/16/2020 Discussion re Stopping Mammograms 2024 DTaP/Tdap/Td Immunization Discontinued 09/05/2018 TdaP Immunization Completed 09/05/2018 Pneumococcal Immunization Combined Discontinued 04/17/2021 Influenza Immunization Completed , 05/07/2023, 04/17/2022, Additional history exists Respiratory Syncytial Virus (RSV) Immunization (Adult) Completed 06/01/2024 Hepatitis B Immunization Aged Out No longer eligible based on patient's age to complete this topic Meningococcal Immunization (ACWY) Aged Out No longer eligible based on patient's age to complete this topic Rotavirus Immunization Aged Out No lo nger eligible based on patient's age to complete this topic Procedures Procedure Name Priority Date/Time Associated Diagnosis Comments MAMMOGRAM BILATERAL GENERIC 12/13/2022 12:00 AM CDT from Last 3 Months or Most Recently Relevant to Health Maintenance Results * MAMMOGRAM BILATERAL MISCELLANEOUS (12/13/2022 12:00 AM CDT) 12/13/2022 us Provider Scan IMG MAMMO ORDERABLES Final Resul t SCAN from Last 3 Months or Most Recently Relevant to Health Maintenance Insurance MEDICARE [employer] GENERIC Care Teams Rail Car 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
--- OUTSIDE RECORDS SUMMARY | 2024-12-18 08:04 | XMS_ITS | Clinical Summary ---
Author Organization [employer] [facility] Address [address] [place] [address] Phone Care Team Providers Care Information Security Consultant Name Role Phone Unavailable Primary Care Provider Unavailabl e Allergies Active Allergy Reactions Criticality Noted Date Comments Gabapentin Other (See Comments) High 08/01/2020 Pseudoephedrine Hcl Shortness of Breath/Wheezing,Other (See Comments) High 11/23/2015 Triprolidine-Pseudoephedrine Shortness o f Breath/Wheezing High 2015 Wool Hives,Rash High 05/02/2016 Medications amLODIPine (NORVASC) 5 mg tablet Take 5 mg by mouth daily. Active celecoxib (CeleBREX) 200 mg capsule Take 200 mg by mouth daily. Active vitamin B complex-vitamin C-folic acid (NEPHROCAP) 1 mg Capsule Take 1 Capsule by mouth daily. Active calcium citrate 200 mg (950 mg) Tablet Take 200 mg by mouth daily. Active aspirin (ECOTRIN EC) 81 mg Tablet, Delayed Release (E.C.)Indicatio ns:pt taking bid for 28 days last day on 02-05-19 Take 81 mg by mouth daily. Active amLODIPine (NORVASC) 10 mg tablet amlodipine 10 mg tablet TK 1 T PO QD 0 Active potassium chloride (Klor-Con M20) 20 mEq Extended Release tablet Klor-Con M20 mEq tablet,extended release TAKE 1 TABLET BY MOUTH EVERY DAY Active Ozempic 0.25 mg or 0.5 mg (2 mg/3 mL) Pen Injector 4 Active Active Problems Patient Care Coordination No te Formatting of this note migh t be different from the original. Primary Care: Jose Rashid MD Referring Provider: Jose Rashid MD [address] [place] [address] Other: Dr. Gissell Mitchell Problem Noted Date Diagnosed Date Hypokalemia 02/01/2020 Morbid obesity with BMI of 40.0-44.9, adult 03/22 Obesity (BMI 35.0-39.9 without comorbidity) 09/2016 Obesity (BMI 35.0-39.9) without comorbidity 11/19 Malignant neoplasm of upper- outer quadrant of left female breast 11/23/2015 Overview (11/22/2016): Stage: Tx N1; ypT1c, pN1a. Date of diagnosis: 11/23/15 Diagnosis: left IDC in LN, ER(+) MD(+) Her 2 (+) by FISH, Ki-67 27.5% No primary lesion noted on MRI Post-chemo- 1.7 cm 09/30 LN Surgeon: Stephen Surgery: 12/26/15 right port; Medical Oncologist: Carie--> Sai Chemotherapy: Navjot-adjuvant chemo with TCH-Perjeta --> maintenance Herceptin Radiation Oncologist: Yolanda Radiation: left breast and clavicular 06/18/16- 08/06/16 Hormonal therapy: PATIENT OFFERED SURVIVORSHIP AND DECLINED ON 08/21/2016 Arthritis HTN (hypertension) Resolved Problems Problem Noted Date Diagnosed Date Resolved Date Abnormal mammogram 11/07/2015 0 Encounters Date Type Department Care Team Description 12/10/2024 External Device Data [facility] ABSTRACTION Provider, Abstract 12/09/2024 External Device Data [facility] ABSTRACTION Provider, Abstract 12/08/2024 External Device Data [facility] ABSTRACTION Provider, Abstract from Last 3 Months Family History Medical History Relation Name Comments Breast Cancer Mother rt breast- com plete mastectomy including nodes Heart Disease Mother Ovarian Cancer Neg Hx Uterine Cancer Neg Hx Relation Name Status Comments Mother Social History Tobacco Use Types Packs/Day Years Used Date Smoking Tobacco: Former Cigarettes 1 16 1 - 05/02/1990 Smokeless Tobacco: Never Tobacco Cessation:Counseling Given: Not Answered Comments:QUIT 1989 Alcohol Use Standard Drinks/Week Comments Yes 0 (1 standard drink = 0.6 oz pur e alcohol) rare Comments No Sex and Gender Information Value Date Recorded Sex Assigned at Not on file Legal Sex Female 11:17 AM CDT Gender Identity Not on file Sexual Orientation Not on file Last Filed Vital Signs Vital Sign Reading Time Taken Comments Blood Pressure 109/73 08/04/2024 11:38 AM DETECTIVE Pulse 91 08/04/2024 11:38 AM DETECTIVE Temperature 36.5 C (97.7 F) 08/04/2024 11:38 AM DETECTIVE Respiratory Rate 14 08/04/2024 11:38 AM DETECTIVE Oxygen Saturation 96% 08/04/2024 11:38 AM DETECTIVE Inhaled Oxygen Concentration - - Weight 97.5 kg (215 lb) 08/04/2024 11:38 AM DETECTIVE Height 160 cm (5' 3) 07/31/2021 1:44 PM DETECTIVE Body Mass Index 38.09 07/31/2021 1:44 PM DETECTIVE Plan of Treatment Upcoming Encounters Date Type Department Care Team (Late st Contact Info) Description 08/05/2025 10:00 AM DETECTIVE Office Visit [facility] Oncology and Hematology - [place] [address] [facility] [address] [place] [address] James Gibbs MD [address] [facility] [address] [place] [address] Health Maintenance Due Date Last Done Comments FIT-DNA Q 3 years 1994 FIT/FOBT Q 1 year 1994 Flex Sig/CT Colonography Q 5 years 1994 PNEUMOCOCCAL VACCINE 50+ YEA RS (1 of 1 - PCV) 12/23/1999 ZOSTER VACCINE (1 of 2) 12/23/1999 RSV VACCINE (60+ or ) (1 - Risk 60-74 years 1-dose series) 2009 INFLUENZA VACCINE (#1) 2024 COVID-19 Vaccine (3 - 2023-2 5 season) 2024 10/17/2020, 09/16/2020 BREAST CANCER SCREENING 12/18/2024 12/19/19 24, 12/19/2023, 12/19/2023, Additional history exists DTAP/TDAP/TD VACCINES (2 - T d or Tdap) 09/05/2028 09/05/2018 OSTEOPOROSIS SCREENING 02/20/2029 4, 02/03/2020, 02/03/2020, Additional history exists COLORECTAL SCREENING 04/10/2029 04/10/2019 Colorectal Cancer Screening 04/10/2029 Medical Devices Implanted Type Area Space Systems Operations Superintendent Device Identifier Shelf Expiration Date Model / Serial / Lot Lap Band Description:PER PATIENT 3.5 YEARS AGO Explanted Type Area [employer] Operations Superintendent Device Identifier Shelf Expiration Date Model / Serial / Lot Port Pwrprt Isp Clrvu 8fr [id number] - [id number] Implanted:Qty: 1 on 12/26/2015 by Gissell Mitchell MD at [facility] Explanted:Qty: 1 on 05/31/2017 by Gissell Mitchell MD at [facility] Port Right: Chest CR BARD- ACCESS SYS 03/18/2017 [id number] / / [id number] Description:implanted in the Internl jugular Procedures Procedure Name Priority Date/Time Associated Diagnosis Comments MAMMOGRAM REPORT Routine 12/19/2023 8:54 AM CDT XR DEXA BONE DENSITY AXIAL 1 OR MORE SITES Routine 02/03/2020 Postmenopausal status, age-related from Last 3 Months or Most Recently Relevant to Health Maintenance Results * MAMMOGRAM REPORT (12/19/2023 8:54 AM CDT) us James Gibbs MD MAMMO ORDERABLES Final Result * XR DEXA BONE DENSITY AXIAL 1 OR MORE SITES (02/03/2020) Anatomical Region Laterality Modality Other [facility] ORDERA BLES Final Result from Last 3 Months or Most Recently Relevant to Health Maintenance Insurance MEDICARE PART A AND B MEDICARE PART A AND B GENERIC PAYOR Advance Directives For more information, please contact: [phone] * Full Code (Latest Code Status on File) Date Activated Date Inactivated Comments 05/31/2017 11:28 AM 05/31/2017 3:19 PM * Full Code Date Activated Date Inactivated Comments 05/04/2016 6:54 AM 05/04/2016 1:19 PM * Full Code Date Activated Date Inactivated Comments 12/26/2015 7:04 AM 12/26/2015 11:56 AM
--- OUTSIDE RECORDS SUMMARY | 2024-12-18 08:04 | XMS_ITS | Patient Health Record ---
Author Organization [facility] Address [address] [place] [address] [address] [place] [address] Care Team Providers Care Collet Driller Name Role Phone Rodney White Unavailable [phone] Shruthi GARDNER, Get Unavailable Unavail able Allergies Allergen (clinical drug ingredient) Drug/Non Drug Allergy documented on EMR Reaction Allergy Type Onset Date Status gabapentin Gabapentin Unknown Drug Allergy Activ e Reason For Referral No Information Medications Medication SIG (Take, Route, Frequency, Duration) Notes Start Date End Date Status amLODIPine Besylate 10 MG 1 tablet Orall y Once a day for 30 day(s) Active CeleBREX 200 MG 1 capsule with food Orally Once a day for 30 day(s) Active HYDROcodone-Acetaminophen 5-325 MG 1 tablet as needed Orally every 6 hrs Active Multivitamin - 1 tablet Orally Once a day for 30 day(s) Active Calcium 500 MG 1 tablet with meals Orally Twice a day for 30 day(s) Active B Complete Active Potassium 99 MG 1 tablet Orally Once a day for 30 day(s) Active Social History Tobacco Use: Social History Observation Description Date Details (start date - stop date) Former Smoker NA - NA Smoking Question Answer Notes Are you a: former smoker Alcohol Screen Question Answer Notes How often did you have a dri nk containing alcohol in the past year? 2 to 4 times a month (2 points) Problems Problem Type SNOMED Code ICD Code Onset Dates Problem Status W/U Status Risk Notes Problem Lumbosacral spondylosis without myelopathy (28824291) Spondylosis without myelopathy or radiculopathy, lumbar region (M47.816) Active confirmed Vital Signs Heart Rate 97 /min 12/30/2023 Temperature 97.2 degrees Fahrenheit 12/30/2023 Oximetry 98 12/30/2023 Blood pressure diastolic 89 mm Hg 12/30/2023 Height 63 in 12/30/2023 Blood pressure systolic 150 mm Hg 12/30/2023 Weight 230 lbs 12/30/2023 BMI 40.74 12/30/2023 Encounters Encounter Location Date Provider Diagnosis -[facility] [address] [facility] [address] [place] [address] 12/30/2023 Rodney White Spinal stenosis, lumbar region with neurogenic claudication M48.062 and Spondylosis without myelopathy or radiculopathy, lumbar region M47.816 -[facility]/ [facility] [address] [facility] [address] [place] [address] 02/24/2024 Rodney White Spondylosis without myelopathy or radiculopathy, lumbar region M47.816 and Spinal stenosis, lumbar region with neurogenic claudication M48.062 -[facility]/ [facility] [address] [facility] [address] [place] [address] 03/02/2024 Rodney White -[address] [address] [facility] [address] [place] [address] 12/30/2023 Rodney White Assessments Encounter Date Diagnosis (ICD Code) Assessment Notes Treatment Notes Treatment Clinical Notes Section Notes 12/30/2023 Spondylosis without myelopathy or radiculopathy, lumbar region (ICD-10 - M47.816) And extensive discussion with the patient today regarding her pain. I personally reviewed her MRI imaging. She does have stenosis, but she also has spondylolisthesis and multilevel facet arthritis. She states predominantly axial back pain that resolved 100% for 4 months with lumbar radiofrequency and had better than 50% relief for up to 10 months, but she states the pain has returned towards its previous level. She would like to go ahead with repeat radiofrequency denervation. I discussed with the risks of the procedure including those bleeding, infection, neurologic injury, cutaneous numbness, persistent paresthesias and the possibility of limited improvement. She understood that but wanted to proceed. 12/30/2023 Spinal stenosis, lumbar region with neurogenic claudication (ICD-10 - M48.062) 02/24/2024 Spondylosis without myelopathy or radiculopathy, lumbar region (ICD-10 - M47.816) Proceeded today with bilateral L3, L4, L5 medial branch radiofrequency to innervate the L4/5 and L5/S1 facets under fluoroscopic guidance. We have confirmed authorization for this and all complications such as bleeding, infection, cutaneous numbness, persistent paresthesias, limited improvement, neurologic injury, and dural puncture were discussed with the patient. Patient understands and would like to proceed with the procedure. 02/24/2024 Spinal stenosis, lumbar region with neurogenic claudication (ICD-10 - M48.062) 12/30/2023 Other Patient will continue to be a part of a comprehensive pain management program as tolerated, while and after treatment plan is carried out. The patient reported their current pain is 7/10 currently in office but is a 10/10 at worst and their pain disability index score is 43. Plan Of Treatment Pending Test Test Name Order Date X-ray : Right Shoulder 07/03/2023 Insurance Providers Payer Name Payer Address Payer Phone Subscriber Number Group Number Insured Name Patient Relationship to Insured Coverage Start Date Coverage End Date Medicare [place] [address] [address] [place] [address] [id number] Mainor Alcaraza Self - patient is the insured [employer] Medicare Supplement [address] [address] [place] [address] [phone] [id number] Tabitha Alcaraz Self - patient is the insured Medical (General) History Medical History History ICD Code Hypertension Osteoathritis Alcoholism: Yes Arthritis: Yes Back pain: Yes Breast Cancer: Yes High blood pressure: Yes Obesity: Yes Pneumonia: Yes Surgical History Surgery Date(Month/Year) Lipectomy Left knee replacement Left breast biopsy Gastric lap-band Right carpal tunnel Cholecystectomy Appendectomy Tonsillectomy Hospitalization History Reason Date(Month/Year) see above
--- OUTSIDE RECORDS SUMMARY | 2024-12-18 08:04 | XMS_ITS ---
Author Organization [facility] Address [address] [place] [address] Phone Care Team Providers Care Mapping Editor Name Role Phone Unavailable Primary Care Provider Unavailabl e Active Problems Patient Care Coordination No te Formatting of this note migh t be different from the original. Primary Care: Jose Rashid MD Referring Provider: Jose Rashid MD [address] [place] [address] Other: Dr. Gissell Mitchell Problem Noted Date Diagnosed Date Hypokalemia 02/01/2020 Morbid obesity with BMI of 40.0-44.9, adult 03/22 Obesity (BMI 35.0-39.9 without comorbidity) 09/2016 Obesity (BMI 35.0-39.9) without comorbidity 11/19 Malignant neoplasm of upper- outer quadrant of left female breast 11/23/2015 Overview (11/22/2016): Stage: Tx N1; ypT1c, pN1a. Date of diagnosis: 11/23/15 Diagnosis: left IDC in LN, ER(+) IN(+) Her 2 (+) by FISH, Ki-67 27.5% No primary lesion noted on MRI Post-chemo- 1.7 cm 09/30 LN Surgeon: Stephen Surgery: 12/26/15 right port; Medical Oncologist: Carie--> Sai Chemotherapy: Navjot-adjuvant chemo with TCH-Perjeta --> maintenance Herceptin Radiation Oncologist: Yolanda Radiation: left breast and clavicular 06/18/16- 08/06/16 Hormonal therapy: PATIENT OFFERED SURVIVORSHIP AND DECLINED ON 08/21/2016 Arthritis HTN (hypertension) Current Treatment and Therapy Plans No current plan information found. Past Treatment and Therapy Plans ONCOLOGY THERAPY PLAN Plan Name Start Date Discontinue Date Treatment Medications Discontinue Reason Plan Provider BLANK SUPPORTIVE CARE THERAPY PLAN 04/05/2016 08/27/2017 No medications scheduled. Therapy Complete James Darnell MD ONCOLOGY TREATMENT Plan Name Start Date Discontinue Date Treatment Medications Discontinue Reason Plan Provider Cycles OP ONC BREAST_PERTUZU MAB_TRASTUZUMA B_DOCETAXEL_CA RBOPLATIN_EVER Y 21 DAYS x 6 THEN TRASTUZUMAB TO COMPLETE 1 YEAR 12/21/2015 08/27/2017 CARBOplatin (PARAPLATIN) IVPBDOCEtaxel (TAXOTERE) IVPBpertuzumab (PERJETA) IVPBtrastuzumab (HERCEPTIN) IVPB Therapy Complete James Darnell MD 8 of 18 cycles started Lifetime Dose Tracking * Chemical Lifetime Dose Automatic Entry Manual Entr y trastuzumab 49.486 mg/kg (4,833 mg) 49.486 mg/kg (4,8 33 mg) 0 mg/kg (0 mg) Effective Dose 46.5 mSv 46.5 mSv 0 mSv Total DLP 2,196 DLP 2,196 DLP 0 DLP CTDIvol Max 40.3 mGy 40.3 mGy 0 mGy CTDIvol Min 31.5 mGy 31.5 mGy 0 mGy Resolved Problems Problem Noted Date Diagnosed Date Resolved Date Abnormal mammogram 11/07/2015 0
== END 2024-12-18 07:57 | disposition home or self-care (01) ==
LOC: ANHIMG 08:00
PROVIDERS: Visit Provider Internal Medicine Hematology & Oncology
DX: Z12.31 Encounter for screening mammogram for malignant neoplasm of breast (principal)
CPT/HCPCS: 77063; 77067